=== PATIENT | female | born 1995 | race Caucasian/White ===

== ENCOUNTER 2018-04-24 08:30 | Outpatient (RCR) | payer MEDICAID, SELFPAY ==
--- NOTE | 2018-04-24 09:05 | BH.SGPN.GN ---
Behaviors/Verbalizations/Mental Status: []Client alert and oriented, casual dress. Eye contact good. Motor activity appropriate. Speech rambling at times. Affect congruent to mood, mood euthymic, anxious. Thoughts linear, logical, no signs of hallucinations or delusions. Reviewed client did not complete symptom tracker during group, but she is scheduled to meet with PHP therapist today. Client's individual therapist will review suicidal ideation. Client Response/Progress/Benefit: []client responded well to session, first day in PHP, receptive to positive support from peers. Client reports feeling ?a little guilty? as she explained taking a break from college classes to complete the PHP program. Client received supportive statements from peers who helped client reframe her guilt. Client stated she came to PHP due to worsening depression and anxiety. Client identified her positives as having positive supports and making the choice to attend PHP. Client appeared to benefit from connecting with peers and gaining support. No progress noted, client?s first day. Client to continue PHP to prevent decompensation and increase mood stability.
--- NOTE | 2018-04-24 10:17 | BH.SGPN.GN ---
Behaviors/Verbalizations/Mental Status: Client maintained good eye contact, casually dressed wearing winter cap, motor activity appropriate - some fidgeting in seat and with objects at table, speech normal rate and tone - at times providing off topic comments, mood euthymic, anxious, congruent affect, thoughts linear and logical, no evidence of delusions or hallucinations reported or observed. Client Response/Progress/Benefit: [Client receptive of session, did well to actively participate despite first day in IOP program. Client made connections to the input from fellow participants on factors impacting stress management and expressed that some stress is normal and important as otherwise ?we are left with nothing?. Client shared often struggling to manage her own stressors and takes on other people?s problems which further restricts ability to tolerate stress. Benefit from increasing awareness of impact stressors have on mental health and ability to function. Client expressed current stressors to include: her mental health, school, finances, guilt, relationships with others, and her future. Client progress noted in ability to identify that some of her stressors are in her control and gaining insights in her ability to set boundaries with herself to decrease stressors. Continued IOP to increase mental health insight, improve use of thought challenging, and increase stress management skills.] Narrative Note: []
--- NOTE | 2018-04-24 14:37 | BH.NA_ITS ---
Physical Data - Vital Signs Pulse Rate: 66 Respiratory Rate: 14 Blood Pressure: 98/50 - Height/Weight Height: 1.55 m Weight:: 53.524 kg Weight in Pounds: 118.0 lbs Current Medication Compliance - Medication Compliance Do you take your medication as prescribed?: Yes Do you need assistance with taking medication?: No Have you had side effects from medication?: No Nutritional History - Appetite Nutritional Instructions:: If client shows signs of a swallowing problem, weight change of 10 pounds or more in the last month, or is on a diabetic diet, the physician will review and request a dietitian consult, as appropriate. All unintentional weight loss will be referred to the physician for decision on need for dietitian consult. Describe your appetite:: Fair Have you noticed a change in your eating habits lately?: Yes - overall decreased appetite w/o significant weight change Functional Assessment - Sleep Pattern Describe any problems with sleeping: Client reports frequent difficulty falling asleep recently. 7-10 hours nightly. - Activities Motor Activity:: Functional Sensory/Communication Assess - Dental Problems Do you have any dental problems?: None - Vision Problems Do you have any vision problems?: Glasses - Hearing Problems Do you have any hearing problems?: Adequate - Communication Problems Do you have difficulty understanding what people are saying?: No Do you have trouble putting your thoughts into words or expressing what you want to say?: No Do people ever have trouble understanding what you say?: No What is your primary language?: [place] Learning Assessment - Education What is your level of education?: Some College - Learning Barriers Learning Barriers:: Ready to learn Medical Problems/History - Pain Assessment Do you have acute or chronic pain?: No - Sexual History Are you sexually active? If so, what type of protection do you use?: Yes - Female Reproductive Do you think you may be ?: No Number of pregnancies:: 0 Number of children:: 0 Have you reached menopause?: No Do you have any history of breast disease?: No - Family History Family History: Family History (Last Updated 04/24/18 @ 14:33 by CHARITO Sarabia RN) Mother CAD (coronary artery disease) Asthma Surgical History - Surgical History Have you had any surgeries? If so, list type and date:: Yes Substance Abuse - Substance Abuse Please describe substance abuse in the last 30 days:: Drinks 1-2 alcoholic jacoby erages weekly. Never a tobacco user. Denies illicit substance use. Reports minimal caffeine intake. Mental Status Summary - Mental Status Significant Findings/Observations on Appearance and Mood:: Client is A&Ox4, cooperative with interview, and makes good eye contact. She engages easily in conversation. She has appropriate grooming and hygiene with casual dress. Normal activity. Steady gait. Speech is clear and of normal rate and volume. Mild anxiety and moderate anhedonia. Client uses sarcasm and laughs at her mental health and past traumas, inappropriate affect. No symptoms of delusions. Denies HI or hallucinations. Denies any current or recent SI. Suicide Assessment - Suicidal Ideation Are you currently or have you been suicidal in the past?: No Suicidal Intentional Rating Scale (SIRS): No suicidal thoughts (past or present) Physician Notification: If Active suicidal thoughts/Will not contract for safety is checked, contact physician and document in the Physician Notification section below. Assault History/Potential - History of Assault Do you have a history of assaulting someone?: No Physician Notification: If yes, notify physician and document notification date and time below. Past Psychiatric History - MH Treatment Hx Age of first mental health symptoms: 10-11 Describe (age, circumstance, etc) any past hospitalizations: N/A Fall Risk Assessment - Age Age: Less than 60 - Mental Status Mental Status: Willing & able to ask for assistance when needed - Physical Status Physical Status: No problems - Impairments Impairments: None - Elimination Elimination: Continent AND independent - Gait or Balance Gait or Balance: Walks independently - Hx of Falls History of falls in the past 6 months: No known history - Medications/Substances Psychotropics:: Antidepressants Medications/substances used within the past 24 hours or ordered to administer: 1-2 of the medications/substances listed above - Total Score Total Points:: 1 RN Summary of Impressions - Impressions Recommendations: Include psychiatric and medical issues, treatment planning recommendations, and discharge planning needs. Impressions: Psychiatric Issues: MDD, anxiety, PTSD Impression: Medical Issues: N/A Impression: General Medical Conditions: N/A - Level of Care How do the client's current symptoms and functional deficits support need for this level of care?: Client endorses decompensated mental health for the past 4 weeks, triggered by a recent breakup. She describes poor motivation, low energy, and isolation. She is not finding enjoyment in activities, like reading and gardening, as she has before. Alvina describes feelings of restlessness and overwhelming rumination, noting that she gets in her head and can't get out. Her symptoms have become severe enough that she has been unable to complete work and school assignments. She has also begun skin picking, a new habit. She is a college student at [employer] majoring in [employer]. She has a significant trauma history, including the murder/suicide of her parents at age 14. Despite recent increase in antidepressant and outpatient counseling, she has continued to decompensate. IOP will promote gains, provide socialization, and prevent further decompensation.
--- NOTE | 2018-04-24 16:08 | BH.MDN_ITS ---
Multi-Disciplinary Note - Note 45-min Individual Time Started:: 12:25 Date: 04/24/18 Purpose of session/treatment goals addressed:: Purpose of session was to assess pt's current symptoms and stressors. Other topics: psychoeducation about cognitive triangle and started discussion about treatment goals. Eye Contact:: Good Motor Activity:: Appropriate Appearance:: Casual Speech:: Appropriate Mood:: Anxious, Other - tearful at times Affect:: Congruent Thoughts:: Linear, Logical, No evidence of hallucinations/delusions noted Staff Interventions:: Therapist used open ended questions to elicit pt's current symptoms and stressors. Processed what led pt to seek out help. Provided psychoeducation about connection between thoughts, emotions, and behavior. Elicited pt's thoughts about what goals she'd like to focus on while in PHP. Provided pt with homework to complete simple thought record. Client Response:: Pt reported she enjoyed group sessions today because it was helpful to hear other people's perspectives and insights. Pt shared she sought out treatment because she noticed she was starting to decompensate in functioning and wanted to be proactive by getting help before she was in a severe depressed state. Pt reported she's experience many stressors with discord with her foster dad, moving out from her foster parents home, having roommate troubles, relationship issues and struggling to complete her college school work. Pt shared she was able to get an incomplete on her courses so she has additional time to complete the missing work so she doesn't have to dropout two weeks before semester ends. Pt reported her parents in 2009 and her 5 siblings and self went to her current foster parents. Pt shared she feels like she has had to be the senior radiation protection technician of her younger siblings since she is the oldest. Pt reported she recognizes she takes care of others as a way to avoid or distract herself from focusing on what she needs. Pt stated she tends to jump into relationships after a breakup, but reported this time she is going to try and stay single so she can focus on what she needs to get better. Pt could connect with the cognitive triangle, but did verbalize apprehension on whether it would work for her. Pt verbalized she is willing to complete the thought record for homework. Pt reported as for goals she'd like to focus on self-care, how to deal with racing thoughts, and learning coping skills. Risks/Concerns:: Pt denies suicidal ideation, plan or intention to date. Pt reported she does pick at her face and peel her nails, but reports she is is not engaging in those behaviors as a form of self-harm. Progress Toward Goals/Plan:: Pt's first day in PHP, no progress observed. Session focused on gathering background information, psychoeducation, and goal setting. Pt to continue PHP level of care to stabilize moods, improve use of healthy coping, and prevent decompensation. Time Stopped:: 13:12
--- NOTE | 2018-04-25 09:10 | BH.SGPN.GN ---
Behaviors/Verbalizations/Mental Status: [] Eye contact is good. Motor activity is appropriate. Appearance is casual. Speech is Appropriate. Mood is depressed. Affect is flat. Thoughts are linear and logical. No evidence of psychosis. Reviewed daily check in sheet and no reports of suicidal ideations or intent. Client Response/Progress/Benefit: [] Active participant in group discussion. Tearful during check-in. Shared with the group grief reactions and struggles adjusting to recent break-up. Continues to ruminate on the relationship and negative conversations with her ex. Has external coping skills, distractions, and support which she is relying on however reports being alone with her thoughts is most distressful. Group provided feedback on developing internal coping skills. Limited progress noted. Continues to report significant depression, ruminations, and difficulty functioning on daily basis. Limited coping strategies. Will continue in IOP to maintain safety, improve daily functioning, and prevent further decompensation. Benefited from group support, feedback, and encouragement. Narrative Note: []
--- NOTE | 2018-04-25 10:20 | BH.SGPN.GN ---
Behaviors/Verbalizations/Mental Status: []Pt eye contact good, casually dressed, motor activity appropriate, speech normal rate and tone, mood euthymic, congruent affect, thoughts linear and intact, no evidence of delusions or hallucinations. Client Response/Progress/Benefit: []Pt listened attentively to peers and contributed to discussion at times. Pt connected with that quote that communication can be an illusion because if use behavior to communicate versus directly communicating it can lead to needs not being met. Pt related to others that assumptions will often lead to misinterpretations and often increased problems. Pt added her thoughts to discussion about the four different types of communication (passive, passive-aggressive, aggressive, and assertive). Pt reported it seems passive communication style results in putting others' needs before your own, which pt could recognize could lead to decreased self-esteem. Pt noted importance of not using texting when trying to have serious conversation because nonverbal communication cannot be seen through text. Pt seemed to benefit from increased awareness of the different types of communication as well as learning about benefits and costs of each style. Narrative Note: []
--- NOTE | 2018-04-25 11:25 | BH.SGPN.GN ---
Behaviors/Verbalizations/Mental Status: []Eye contact is good. Motor activity is appropriate. Appearance is casual. Speech is Appropriate. Mood is anxious. Affect is congruent. Thoughts are linear and logical. No evidence of psychosis. Client Response/Progress/Benefit: []Pt listened attentively to peers and shared thoughts and ideas during discussion. Pt reported she tends to be assertive-passive which pt explained as she will start off being assertive with someone, but then becomes passive and often will give in to the other person. Pt recognizes she experiences more of the costs/benefits of a passive communicator, due to often backing down from being assertive. Pt connected with importance of being specific and clear when communicating. Pt seemed to benefit from group brainstorm of various strategies that can improve communication effectiveness. Pt to continue PHP level of care to maintain gains and prevent decompesnation. Narrative Note: []
--- NOTE | 2018-04-25 15:32 | BH.MTP ---
Master Treatment Plan - Patient Information Program Physician:: Dr. Romero Primary Therapist:: Christine Orona, [facility] - Psychiatric Diagnoses Psychiatric Diagnoses:: Major Depressive Disorder, Recurrent moderate Diagnosis Code(s):: F33.1 - Estimated LOS Estimated LOS (in weeks):: 4 Problem/Goal #1 - Problem/Goal #1 Stated Goal:: Client will reduce depression, feelings of hopelessness, and suicidal ideation due to Major Depressive Disorder through the Intensive Outpatient Program. Description of Barriers: Pt's cognitive distortions, external locus of control, low motivation, and relationship conflicts could all be potential barriers to treatment. Functional Impact: Pt having trouble keeping up with her school work and having increased anxiety about her future. Pt reports decreased energy, decreased motivation, anhedonia, and isolated. Pt having passive thoughts of and is pessimistic about her future. Goal Relevant Strengths/Supports: Pt is intelligent, resilient, and has several positive supports in her life that are encouraging and serve as protective factors. - Objectives Objective #1 Stated Objective: Client will identify and replace 2-3 negative thinking patterns that reinforce depressive symptoms. Interventions: Assist the client in identifying, challenging, and replacing dysfunctional thoughts with positive self-enhancing thoughts. Discharge Criteria: Client will have achieved this goal when can identify at least 2 negative thinking patterns, replace thoughts with rational thoughts, and combat suicidal ideation. Target Date: 05/23/18 Objective #2 Stated Objective: Pt will decrease depressive symptoms AEB pt?s score on the DSM 5 cross-cutting measure and improve pt?s daily functioning. Interventions: Through groups and individual therapy, pt will be provided with education on cognitive distortions, mistaken beliefs, and identifying and combating negative self-talk. Therapist will assist pt with getting back into the activities she once enjoyed as well as increasing healthy coping strategies. Discharge Criteria: Pt will have met this goal when pt?s score on the DSM 5 cross cutting measure for depression has been decreased and per pt?s report daily functioning has improved. Target Date: 05/23/18 Problem/Goal #2 - Problem/Goal #2 Stated Goal:: Reduce overall frequency, intensity, and duration of the anxiety so that daily functioning is not impaired. Description of Barriers: Pt's cognitive distortions, external locus of control, low motivation, and relationship conflicts could all be potential barriers to treatment. Functional Impact: Pt having trouble keeping up with her school work and having increased anxiety about her future. Pt reports decreased energy, decreased motivation, anhedonia, and isolated. Pt having passive thoughts of and is pessimistic about her future. Goal Relevant Strengths/Supports: Pt is intelligent, resilient, and has several positive supports in her life that are encouraging and serve as protective factors. - Objectives Objective #1 Stated Objective: Client will learn and utilize 2-3 healthy coping strategies to manage anxious symptoms. Interventions: Therapist will assist client in learning internal coping strategies to manage anxious symptoms, along with helping client identify triggers. Discharge Criteria: Client will have achieved this goal when can verbalize and has practiced at least 2 healthy coping strategies. Target Date: 05/23/18 Objective #2 Stated Objective: Pt will decrease anxious symptoms AEB pt?s score on the DSM 5 cross-cutting measure improve pt?s daily functioning. Interventions: Through groups and individual therapy, pt will be provided education about anxiety?s impact on body and common physiological reaction to anxiety. Therapist will teach pt appropriate breathing techniques and build healthy coping skills to manage daily anxieties. Discharge Criteria: Pt will have met this goal when pt?s score on the DSM 5 cross cutting measure for anxiety has been decreased and per pt?s report daily functioning has improved. Target Date: 05/23/18
--- NOTE | 2018-04-25 16:14 | BH.COMM ---
Communication Note - Communication with Client Communication Note: due to unforseen circumstances psychiatrist was unable to make it into program to complete evaluation today.
--- NOTE | 2018-04-25 16:31 | BH.MDN ---
Multi-Disciplinary Note - Note 45-min Individual Time Started:: 12:21 Date: 04/25/18 Purpose of session/treatment goals addressed:: Purpose of session was to assess current symptoms and stressors. Other topics: processing conflict situation, conflict resolution strategies and cognitive distortions. Eye Contact:: Good Motor Activity:: Restless Appearance:: Casual Speech:: Appropriate Mood:: Anxious Affect:: Congruent Thoughts:: Circular, No evidence of hallucinations/delusions noted Staff Interventions:: Therapist used open ended questions to elicit pt's current symptoms and stressors. Therapist inquired about pt's homework from last session. Therapist assisted pt with processing current conflict situation. Educated pt about various conflict resolution strategies. Therapist provided pt with handout about cognitive distortions, asked pt to review distortions and identify which distortions she relates to the most for homework. Client Response:: Pt reported she did not completed the homework from last session because she forgot. Pt shared she spent last night ruminating about her ex-girlfriend. Pt had many negative thoughts towards the relationship, at times repeating the same situation about her ex. Pt reported her other stressor to be her roommates. Pt shared she has been having difficulty with her roommates since February with one roommate not paying the electric bill on time. Pt stated she is frustrated becasue due to her roommate not payin on time the late fees keep accruing. Pt shared she has attempted to communicate her concerns to her roommate, but her roommate refuses to speak with pt. Pt shared with therapist a note pt had left for her roommate. With assistance pt could identify passive aggressive statemens pt had made that didn't help the situation. Connected with some of the conflict resolution strategies discussed. Reported anxiety about confronting roommate because roommate has history of threatening to kill herself when confronted. Pt reported over weekend plans to spend time with one of her friends to stay busy and have support. Agreeable to look over cognitive distortions and identify which distortions she relates to most. Risks/Concerns:: Pt denies suicidal ideation, plan or intention to date. Progress Toward Goals/Plan:: Pt progress limited. Pt spent time venting during individual session, did not complete homework. Pt continuing to have many ruminations about her ex-girlfriend, which pt has difficult time bringing herself back to the moment. Pt anxiety seems to be exasperated by conflicts within her interpersonal relationships. Pt to continue PHP level of care to decrease anxiety, improve daily functioning, and prevent decompesnation. Time Stopped:: 13:04
[2018-05-23 14:23] VITALS: BP 98/50; PULSE 66; RESP 14
--- OUTSIDE RECORDS SUMMARY | 2018-06-19 08:51 | XMS RPT_ITS ---
:1995 Author Organization OHIP Care Team Providers Name Role Phone HALEY LINK Attending Unavailable HALEY LINK Attending Unavailable HALEY LINK Referring Unavailable ALEXA MOCK (CNM) Attending Unavailable CAROLYN LANDRUM (LINING INSERTER) Attending Unavailable SUNIL YANEZ Attending Unavailable Haley Link Primary Care Unavailable SUNIL YANEZ Attending Unavailable Haley Link Primary Care Unavailable PROBLEMS PROBLEMS DATE TYPE CONDITION / CODE ATTENDING STATUS SOURCE 12/20/2017 Active Vitamin D NA Active [facility] deficiency, Main [place] unspecified / Repository E55.9(ICD-10) 08/01/2017 Active Unknown / CAROLYN LANDRUM Active [facility] UNK(Unknown) (LINING INSERTER) Main [place] Repository PROCEDURES PROCEDURES No Procedure Records FoundRESULTS RESULTS PROGRESS Observed: 03/14/2018 Status: COMPLETED Source: [place] 10:56 AM [facility] REPOSITORY HNO ID: [id number] Author: Logan Hand LPN Service: (none) Author Type: (none) Type: Progress Notes Filed: 03/14/2018 10:57 AM Note Text: 22 year old female here for INACTIVATED INFLUENZA VACCINE. 5406-1227 Season Patient is identified by name and date of : Yes [] CONTRAINDICATIONS color enhanced section Age less than 6 months? No Allergy to eggs, chicken, chicken feathers, or chicken dander? No Allergy to thimerosal (a preservative) or formaldehyde, gelatin? No History of severe reaction to any vaccine component or a previous dose of influenza vaccination? No History of Guillain-[place]gle[place] Syndrome within 6 weeks after a previous influenza vaccine? No Patient is not moderately or severely ill? No Current temperature greater or equal to 100.4F? No History of Bone Marrow Transplant prior 6 months or solid organ transplant in the past 3 months ? No History of fainting after a prior injection or medical procedure? No- ? If patient has fainted in the past, the CDC recommends sitting or lying down for 15 minutes after the vaccination. [] VERIFICATION color enhanced section Was the answer Yes for any of the above contraindications? No contraindications present. Acceptable to proceed with vaccine. Patient/guardian agrees the above answers are true to the best of their knowledge? Yes Flu vaccine information sheet given? Yes See immunization activity in [facility] for details of immunizations adminstered today. Patient age: [age] year old For The 4323-3119 Flu Season 6-35 months old: Fluzone 0.25 ml - IM (Preservative Free) 3 years of age: Fluzone 0.5 ml - IM (Preservative Free) 3 years and older: Fluzone 0.5 ml- IM-(with Preservatives) 65+ years old: 2-49 years old Fluzone High-Dose 0.5 ml - IM (Preservative Free) FLUMIST- intranasal REMEMBER: If patient is less than 9 years of age and this is the first vaccine of Influenza to be received in any flu season, they should receive a second dose in one months time. CNNURSE Observed: 03/14/2018 Status: COMPLETED Source: [place] 10:[address] [facility] [place] REPOSITORY Nurse Visit (FAMPWS) GARRETT KAYITTIM Diaz ([id number]) 1995 F Date Time Provider Department 03/14/18 10:40 AM IN NURSE MONAL[place] During your visit today, we recorded the following information about you: Temperature 97.6 degrees Logan Hand CARLOS 03/14/2018 10:57 AM Signed 22 year old female here for INACTIVATED INFLUENZA VACCINE. [id number] Season Patient is identified by name and date of : Yes [] CONTRAINDICATIONS color enhanced section Age less than 6 months? No Allergy to eggs, chicken, chicken feathers, or chicken dander? No Allergy to thimerosal (a preservative) or formaldehyde, gelatin? No History of severe reaction to any vaccine component or a previous dose of influenza vaccination? No History of Guillain-In[place]wood Syndrome within 6 weeks after a previous influenza vaccine? No Patient is not moderately or severely ill? No Current temperature greater or equal to 100.4F? No History of Bone Marrow Transplant prior 6 months or solid organ transplant in the past 3 months ? No History of fainting after a prior injection or medical procedure? No- ? If patient has fainted in the past, the CDC recommends sitting or lying down for 15 minutes after the vaccination. [] VERIFICATION color enhanced section Was the answer Yes for any of the above contraindications? No contraindications present. Acceptable to proceed with vaccine. Patient/guardian agrees the above answers are true to the best of their knowledge? Yes Flu vaccine information sheet given? Yes See immunization activity in [facility] for details of immunizations adminstered today. Patient age: [age] year old For The 6259-8765 Flu Season 6-35 months old: Fluzone 0.25 ml - IM (Preservative Free) 3 years of age: Fluzone 0.5 ml - IM (Preservative Free) 3 years and older: Fluzone 0.5 ml- IM-(with Preservatives) 65+ years old: 2-49 years old Fluzone High-Dose 0.5 ml - IM (Preservative Free) FLUMIST- intranasal REMEMBER: If patient is less than 9 years of age and this is the first vaccine of Influenza to be received in any flu season, they should receive a second dose in one months time. 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] INVALID FOR* Vitamin D deficiency [E55.9] INVALID FOR* Encounter Status:Closed by LOGAN HAND LPN on 03/14/18 CBC AND DIFFERENTIAL Collected: 12/20/2017 Status: F Source: [place] 10:47 AM [facility] REPOSITORY TYPE CODE TESTS RESULT OUT OF REFERENCE UNITS RANGE LAB WBC 3.70-11.00 k/uL WBC 6.02 LAB RBC 3.90-5.20 m/uL RBC 4.91 LAB HGB 11.5-15.5 g/dL Hemoglobin 14.4 LAB HCT 36.0-46.0 % Hematocrit 45.8 LAB MCV 80.0-100.0 fL MCV 93.3 LAB MCH 26.0-34.0 pG MCH 29.3 LAB MCHC 30.5-36.0 g/dL MCHC 31.4 LAB RDWCV 11.5-15.0 % RDW-CV 13.0 LAB PLTCT 150-400 k/uL Platelet Count 187 LAB MPV 9.0-12.7 fL MPV 11.7 LAB ANEUT % Neut% 47.6 LAB AANEUT 1.45-7.50 k/uL Abs Neut 2.85 LAB ALYMP % Lymph% 41.0 LAB AALYMP 1.00-4.00 k/uL Abs Lymph 2.47 LAB AMONO % Harrison% 11.1 LAB AAMONO <0.87 k/uL Abs Harrison 0.67 LAB AEOS % Eosin% 0.0 LAB AAEOS <0.46 k/uL Abs Eosin <0.03 LAB ABASO % Baso% 0.3 LAB AABASO <0.11 k/uL Abs Baso <0.03 LAB AUNRBC 0 /100 WBC NRBCs 0.0 LAB ABNRBC <0.01 k/uL Absolute nRBC <0.01 LAB DTYP DTYPE Auto Diff Performed By: #### CBCDIF, VITD #### [facility] [email or web address] [address] [place] [address] VITAMIN D 25 HYDROXY Collected: 12/20/2017 Status: F Source: [place] 10:47 AM [facility] REPOSITORY TYPE CODE TESTS RESULT OUT OF REFERENCE UNITS RANGE LAB VITD 31.0-80.0 ng/mL Vitamin D 25 36.3 Hydroxy Result Comment: Classification of 25 OH Vitamin D status: Insufficiency/Moderate Deficiency: < or = 30 ng/mL Sufficiency/Optimal Levels: 31 to 80 ng/mL Toxicity: > 100 ng/mL Test performed by chemiluminescent immunoassay. Performed By: #### CBCDIF, VITD #### [facility] [email or web address] [address] [place] [address] PROGRESS Observed: 12/20/2017 Status: COMPLETED Source: [place] 10:01 AM [facility] REPOSITORY HNO ID: [id number] Author: Haley Link Service: (none) Author Type: Physician Type: Progress Notes Filed: 12/20/2017 10:41 AM Note Text: 22 year old female presents for a routine 12+ year check-up. [] GENERAL QUESTIONS color enhanced section Patient concerns: NONE Parental concerns: N/A Diet: milk: whole ; balanced diet; specific issues: NONE Stools: NORMAL (soft and appropriately sized) Urine: NO PROBLEMS Fluoride Water: uses significant amount of [employer] water from: [place] - optimum level (use recommendations for levels of >0.6 ppm), adjusted/purchase (2011 testing) Prescription: age 17+ years - no fluoride supplement indicated Ongoing subspecialty care: Ongoing care: ophthalmology Ongoing ancillary care: NONE School/etc: going into college senior, doing well, grades A. will be doing a [employer] project this year, major [employer] Interests AND Activities: music Significant stresses: Yes, details: UNSPECIFIED [] SPORTS QUESTIONS color enhanced section History of seizures: No History of concussion: Yes History of syncope: No History of heart problems: No History of hypertension: No History of asthma: No History of single kidney: No History of skeletal problems: No History of any significant injury: No Family history of either heart problems or sudden <age 40 years: No MEDICAL HISTORY Past medical history: IMPORTED PAST MEDICAL HISTORY Diagnosis Date - Concussion - PMH - PAST MEDICAL HISTORY OF 01/02 normal color vision IMPORTED PAST SURGICAL HISTORY Procedure Laterality Date - NONE Family history: IMPORTED FAMILY HISTORY Problem Relation Age of Onset - Allergies Mother - Asthma Mother - [OTHER] Mother 12/23/09 - Hypertension Father maternal side - Diabetes Father maternal side - [OTHER] Father 12/23/09 GYNECOLOGICAL HISTORY Menarche: 13 Periods are: regular q 28-30 days [] SOCIAL HISTORY color enhanced section Sexual activity: Yes, details: single female partner; contraception: NONE Substance abuse and smoking: Yes, details: alcohol-1-3 glasses of wine per month High risk behaviors: NONE Mental health: POSITIVE OUTLOOK Social history obtained when patient was alone [] MISCELLANEOUS color enhanced section Difficulties with learning for caregiver: No VISION AND HEARING ASSESSMENT Eye doctor visit within the past year: Yes Hearing concerns: No [] ADDITIONAL NURSING COMMENTS color enhanced section None Kalie Alcantara Ma PHYSICAL EXAM (to re-import BP% use .BPFA) BP 100/60 Pulse 68 Temp 36.6 ?C (97.9 ?F) (Temporal Artery) Resp 16 Ht 156 cm (5' 1.42) Wt 54.4 kg (120 lb) LMP 11/25/2017 BMI 22.37 kg/m? General: alert and active in no apparent distress Head: normal Eyes: conjunctivae/corneas clear. PERRL, EOM's intact. Ears: External ears normal. Canals clear. TM's normal. Nose: Nares normal. Septum midline. Mucosa normal. Oropharynx: Lips, mucosa, and tongue normal. Teeth and gums normal. Oropharynx normal. Neck: Neck supple, no adenopathy; thyroid symmetric, normal size Back: Back symmetric, no curvature. Lungs: Lungs clear to auscultation. Heart: RRR , Normal S1 and S2.,No murmurs Abdomen: Abdomen soft, non-tender. BS normal. No masses, organomegaly Extremities: Extremities normal. No deformities, edema, or skin discolora Musculoskeletal: Extremities with FROM and no problems identified. Neuro: No focal deficits or abnormal findings present Skin: No significant lesions [] ASSESSMENT color enhanced section Well patient Normal growth Issues: Vit d deficiency concerned about anemia and some bruising (one noted on exam today) PLAN Office Visit on 12/20/17 -CBC + DIFF -VITAMIN D 25 HYDROXY -FLUoxetine HCl (PROZAC) 40 mg capsule Plan per orders. Counseling: seat belts, bike AND motorcycle helmets, water safety, sunscreen power tools, firearms exercise, sports safety 2% (or less) milk, balanced diet, limit sugar and high fat foods dental care adequate sleep, limit TV / video and computer games social interactions with family and peers school issues drug, alcohol and tobacco use sexual activity and control mental health and abuse / domestic violence issues Forms filled out: NONE Follow up visit in 1 year for routine care or prn with concerns. I have reviewed the above nursing obtained HPI and I concur. Haley Link MD CNOV Observed: 12/20/2017 Status: COMPLETED Source: [place] 9:45 AM [facility] REPOSITORY Office Visit (PEDSWS) ONESIMO KAY ([id number]) 1995 F Date Time Provider Department 12/20/17 9:45 AM HALEY LINK PEDSWS During your visit today, we recorded the following information about you: Temperature Pulse Respiration Blood pressure 97.9 degrees 68/minute 16/minute 100/60 Weight Height Last Period 54.4 kg 1.56 m 11/25/17 Haley Link MD 12/20/2017 10:41 AM Signed 22 year old female presents for a routine 12+ year check-up. [] GENERAL QUESTIONS color enhanced section Patient concerns: NONE Parental concerns: N/A Diet: milk: whole ; balanced diet; specific issues: NONE Stools: NORMAL (soft and appropriately sized) Urine: NO PROBLEMS Fluoride Water: uses significant amount of city water from: [place] - optimum level (use recommendations for levels of >0.6 ppm), adjusted/purchase (2011) Prescription: age 17+ years - no fluoride supplement indicated Ongoing subspecialty care: Ongoing care: ophthalmology Ongoing ancillary care: NONE School/etc: going into college senior, doing well, grades A. will be doing a [employer] project this year, major [employer] Interests AND Activities: music Significant stresses: Yes, details: UNSPECIFIED [] SPORTS QUESTIONS color enhanced section History of seizures: No History of concussion: Yes History of syncope: No History of heart problems: No History of hypertension: No History of asthma: No History of single kidney: No History of skeletal problems: No History of any significant injury: No Family history of either heart problems or sudden <age 40 years: No MEDICAL HISTORY Past medical history: IMPORTED PAST MEDICAL HISTORY Diagnosis Date - Concussion - PMH - PAST MEDICAL HISTORY OF 01/02 normal color vision IMPORTED PAST SURGICAL HISTORY Procedure Laterality Date - NONE Family history: IMPORTED FAMILY HISTORY Problem Relation Age of Onset - Allergies Mother - Asthma Mother - [OTHER] Mother 12/23/09 - Hypertension Father maternal side - Diabetes Father maternal side - [OTHER] Father 12/23/09 GYNECOLOGICAL HISTORY Menarche: 13 Periods are: regular q 28-30 days [] SOCIAL HISTORY color enhanced section Sexual activity: Yes, details: single female partner; contraception: NONE Substance abuse and smoking: Yes, details: alcohol-1-3 glasses of wine per month High risk behaviors: NONE Mental health: POSITIVE OUTLOOK Social history obtained when patient was alone [] MISCELLANEOUS color enhanced section Difficulties with learning for caregiver: No VISION AND HEARING ASSESSMENT Eye doctor visit within the past year: Yes Hearing concerns: No [] ADDITIONAL NURSING COMMENTS color enhanced section None Kalie Alcantara Dc PHYSICAL EXAM (to re-import BP% use .BPFA) BP 100/60 Pulse 68 Temp 36.6 ?C (97.9 ?F) (Temporal Artery) Resp 16 Ht 156 cm (5' 1.42) Wt 54.4 kg (120 lb) LMP 11/25/2017 BMI 22.37 kg/m? General: alert and active in no apparent distress Head: normal Eyes: conjunctivae/corneas clear. PERRL, EOM's intact. Ears: External ears normal. Canals clear. TM's normal. Nose: Nares normal. Septum midline. Mucosa normal. Oropharynx: Lips, mucosa, and tongue normal. Teeth and gums normal. Oropharynx normal. Neck: Neck supple, no adenopathy; thyroid symmetric, normal size Back: Back symmetric, no curvature. Lungs: Lungs clear to auscultation. Heart: RRR , Normal S1 and S2.,No murmurs Abdomen: Abdomen soft, non-tender. BS normal. No masses, organomegaly Extremities: Extremities normal. No deformities, edema, or skin discolora Musculoskeletal: Extremities with FROM and no problems identified. Neuro: No focal deficits or abnormal findings present Skin: No significant lesions [] ASSESSMENT color enhanced section Well patient Normal growth Issues: Vit d deficiency concerned about anemia and some bruising (one noted on exam today) PLAN Office Visit on 12/20/17 -CBC + DIFF -VITAMIN D 25 HYDROXY -FLUoxetine HCl (PROZAC) 40 mg capsule Plan per orders. Counseling: seat belts, bike AND motorcycle helmets, water safety, sunscreen power tools, firearms exercise, sports safety 2% (or less) milk, balanced diet, limit sugar and high fat foods dental care adequate sleep, limit TV / video and computer games social interactions with family and peers school issues drug, alcohol and tobacco use sexual activity and control mental health and abuse / domestic violence issues Forms filled out: NONE Follow up visit in 1 year for routine care or prn with concerns. I have reviewed the above nursing obtained HPI and I concur. MD Haley Madrigal MD 12/20/2017 10:02 AM Signed 14-18 years Fueling Your Thoughts ? Are you concerned with your child's eating habits or level of activity? ? Do you and your child eat vegetables every day? ? How many meals do you eat as a family each week? How many are from fast food, take out, etc? ? What beverages do you buy? ? How much time does your child watch TV, play on the computer, play video games, or text daily? ? What do you and your child do to stay active? Nutrition Tips By providing nutritious foods to your child, you help him or her improve strength, energy, attention span and the ability to keep up with friends. ? Breakfast - Eating a healthy breakfast every day is recommended. ? Lunch - Review school menus with your child and plan ahead; or pack a lunch with at least 4 out of the 5 food groups (calcium foods, fruits, vegetables, whole grains and lean protein). ? Snacks - Eat only when hungry. Stock up on [id number]-[id number] vegetables, fruit, cheese, yogurt, milk, lean meats, whole grains, low sugar cereal or nuts. ? Dinner - Eat as many meals as possible as a family at the dinner table. Be sure to slow down, enjoy, and turn off screens. ? Eating Out - Keep portion sizes small or share meals (don't super size). Choose fruit or salad instead of fries, milk instead of soft drinks, baked or broiled instead of fried. ? Beverages - Think Your Drink! ? The best choices are water or milk. ? Limit sweetened beverages such as soft drinks, iced teas, energy drinks and caffeine-containing beverages. ? Regular intake of too much caffeine can lead to trouble sleeping, rapid heart rate, anxiety, poor attention span, headaches or shakiness. Your main job is to offer a variety of healthy foods (fruits, vegetables, milk, yogurt, cheese, whole grains, mere, poultry, fish and eggs). Parents ? Make sure you and your kids are active 60 minutes every day. Focus on FUN, including both organized and free play. ? Count time spent doing chores: car washing, walking the dog, dusting, sweeping, pulling weeds, raking leaves or shoveling snow. ? Involve the whole family in physical activity because you are role models! ? Be a good role model for your kids - be active and eat healthy foods. ? Screen time (computers, TV, phones, rubens systems, texting, etc.) should be limited to 2 hours or less daily (pre-plan how screen time will be used). ? Screens may be monitored easily if moved to a common area; keep them out of child's bedroom. ? Make sure your child is sleeping at least 10-11 hours per night. Keeping regular bed time is critical to good health and weight management. ? Caffeine can interfere with a healthy sleep routine. ? If you have concerns about your child's weight, physical activity or eating behaviors, ask your healthcare provider. Tips Regarding Teens ? Do not criticize your teenager about their size and shape. Focus on strengths rather than appearance. ? Remember that parents can still influence choices...as a parent you are still the role model! 5 to Go!TM Healthy Kids Inside AND Out 5 Eat FIVE fruits and veggies a day 4 Give and get FOUR compliments a day 3 Consume THREE calcium products a day 2 Limit media time to TWO hours a day 1 Get at least ONE hour of exercise a day 0 Consume ZERO sugar-sweetened drinks Go! Be healthy, inside and out! [email or web address] Referring Provider: SELF [200] Allergies As of Date: 12/20/2017 (No Known Allergies) Date Reviewed: 12/20/2017 Reviewed by: Haley Link - Fully Assessed Reason for Visit: Physical [83] Primary Visit Diagnosis:Encounter for general adult medical examination without abnormal findings [Z00.00] Other Visit Diagnosis:Vitamin D deficiency [E55.9] Order(s):CBC + DIFF [SQCBCDIF] Order #: [id number] FUTURE VITAMIN D 25 HYDROXY [SQVITD] Order #: [id number] FUTURE FLUoxetine HCl (PROZAC) 40 mg capsuleTake 1 capsule by mouth once daily.Disp: 30 capsuleRfl: 6 Prescriptions as of 12/20/2017 Sig: FLUOXETINE 40 MG CAPSULE Take 1 capsule by mouth once * CHOLECALCIFEROL (VITAMIN D3) * Take 1 capsule by mouth twice* Problem List As Of Date 12/20/2017 Noted Resolved 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 Are you concerned with your child's eating habits or level of activity? ? Do you and your child eat vegetables every day? ? How many meals do you eat as a family each week? How many are from fast food, take out, etc? ? What beverages do you buy? ? How much time does your child watch TV, play on the computer, play video games, or text daily? ? What do you and your child do to stay active? Nutrition Tips By providing nutritious foods to your child, you help him or her improve strength, energy, attention span and the ability to keep up with friends. ? Breakfast - Eating a healthy breakfast every day is recommended. ? Lunch - Review school menus with your child and plan ahead; or pack a lunch with at least 4 out of the 5 food groups (calcium foods, fruits, vegetables, whole grains and lean protein). ? Snacks - Eat only when hungry. Stock up on krrmm-sd-its vegetables, fruit, cheese, yogurt, milk, lean meats, whole grains, low sugar cereal or nuts. ? Dinner - Eat as many meals as possible as a family at the dinner table. Be sure to slow down, enjoy, and turn off screens. ? Eating Out - Keep portion sizes small or share meals (don't super size). Choose fruit or salad instead of fries, milk instead of soft drinks, baked or broiled instead of fried. ? Beverages - Think Your Drink! ? The best choices are water or milk. ? Limit sweetened beverages such as soft drinks, iced teas, energy drinks and caffeine-containing beverages. ? Regular intake of too much caffeine can lead to trouble sleeping, rapid heart rate, anxiety, poor attention span, headaches or shakiness. Your main job is to offer a variety of healthy foods (fruits, vegetables, milk, yogurt, cheese, whole grains, mere, poultry, fish and eggs). Parents ? Make sure you and your kids are active 60 minutes every day. Focus on FUN, including both organized and free play. ? Count time spent doing chores: car washing, walking the dog, dusting, sweeping, pulling weeds, raking leaves or shoveling snow. ? Involve the whole family in physical activity because you are role models! ? Be a good role model for your kids - be active and eat healthy foods. ? Screen time (computers, TV, phones, rubens systems, texting, etc.) should be limited to 2 hours or less daily (pre-plan how screen time will be used). ? Screens may be monitored easily if moved to a common area; keep them out of child's bedroom. ? Make sure your child is sleeping at least 10-11 hours per night. Keeping regular bed time is critical to good health and weight management. ? Caffeine can interfere with a healthy sleep routine. ? If you have concerns about your child's weight, physical activity or eating behaviors, ask your healthcare provider. Tips Regarding Teens ? Do not criticize your teenager about their size and shape. Focus on strengths rather than appearance. ? Remember that parents can still influence choices...as a parent you are still the role model! 5 to Go!TM Healthy Kids Inside AND Out 5 Eat FIVE fruits and veggies a day 4 Give and get FOUR compliments a day 3 Consume THREE calcium products a day 2 Limit media time to TWO hours a day 1 Get at least ONE hour of exercise a day 0 Consume ZERO sugar-sweetened drinks Go! Be healthy, inside and out! [email or web address] Prescriptions ordered this encounter Disp Refills Start End FLUOXETINE 40 MG CAPSULE 30 c* 6 12/20/2017 Route: ORAL Sig: Take 1 capsule by mouth once daily. Medications Discontinued During This Encounter FLUoxetine HCl (PROZAC) 40 mg capsule 30 c* 0 11/29/2017 12/20/2017 Route: ORAL Sig: Take 1 capsule by mouth once daily. Disc: Reason for discontinue is not on file. Disposition: Return for Follow-up in one year for routine physical. Follow-up and Disposition History Recorded Questionnaire: PED SOCIAL HLTH TOOL In the last 3 months, were you ever worried your food would run out before you could buy more? -> No In the last 12 months, has it been hard for you to pay any of these bills: Utility, Housing, Car, and Medical? -> No Are you worried that in the next 2 months, you may not have stable housing? -> No Do problems getting child protective services social worker make it difficult for you to work or study? (leave blank if you do not have children) -> No In the last 12 months, have you needed to see a doctor but could not because of the cost? -> No In the last 12 months, have you ever had to go without health care because you didn?t have a way to get there? -> No Do you ever need help reading hospital materials? -> No Are you afraid you might be hurt in your apartment building or house? -> No If you checked YES to any boxes above, would you like to receive assistance with any of these needs? -> No Are any of your needs urgent? (For example: I don?t have food tonight, I don?t have a place to sleep tonight) -> No Over the past 2 weeks, have you had little interest or pleasure in doing things? -> Not at all Over the past 2 weeks have you felt down, depressed or hopeless? -> Not at all Questionnaire: PED PHQ 9 1. Feeling down, depressed, irritable or hopeless? -> 1 - Several Days 2. Little interest or pleasure in doing things? -> 1 - Several Days 3. Trouble falling asleep, staying asleep, or sleeping too much? -> 1 - Several Days 4. Poor appetite, weight loss, or overeating? -> 1 - Several Days 5. Feeling tired or little energy? -> 0 - Not At All 6. Feeling bad about yourself-or feeling that you are a failure or that you have let yourself or your family down? -> 0 - Not At All 7. Trouble concentrating on things like school work, reading or watching TV? -> 0 - No- t At All 8. Moving or speaking so slowly that other people could have notices? Or the opposite-being so fidgety or restless that you were moving around a lot more than usual? -> 0 - Not At All 9. Thoughts that you would be better off or of hurting yourself in some way? -> 0 - Not At All 10. In the past year have you felt depressed or sad most days, even if you felt okay sometimes? -> No 11. If you are experiencing any of the problems listed on this questionnaire, how difficult have these problems made it for you to do your work, take care of things at home or get along with other people? -> Not at all difficult 12. Has there been a time in the past month when you have had serious thoughts about ending your life? -> No 13. Have you ever tried to kill yourself or made a suicide attempt? -> No SCORE -> 4 Total Score: Depression Severity -> 01-04=Minimal depression Encounter Status:Closed by HALEY LINK MD on 12/20/17 PROGRESS Observed: 08/16/2017 Status: COMPLETED Source: [place] 8:[address] [facility] REPOSITORY [facility] ID: [id number] Author: Alexa (Prudencio) DIRK Mock Service: (none) Author Type: Fishing Worker Type: Progress Notes Filed: 08/16/2017 10:00 AM Note Text: Onesimo Kay is a 21 year old No obstetric history on file. who presents for her annual gynecologic exam without complaints. Patient is a student at [employer]. Menses: cycles every 31-32 days and 5 days of flow. Contraception: none HPV vaccine: Yes Last pap smear: never Sexually active: Yes, partners with women History of STDS: None Patient concerns for STD exposure: No. Last sexual contact: Last week Time with current partner: 6 months Number of lifetime partners: 2 Pain with intercourse: No Postcoital bleeding: No Hot flashes: No Night sweats: No Vaginal dryness: No Mood swings: No Insomnia: No Exercise: 3-5 times a week for 30-60 minutes. Type: Walking Diet: Regular Seatbelt use: Yes @OB(<SYNTAX> error)@ PAST MEDICAL HISTORY Diagnosis Date - [facility] - PAST MEDICAL HISTORY OF 01/02 normal color vision PAST SURGICAL HISTORY Procedure Laterality Date - NONE FAMILY HISTORY Problem Relation Age of Onset - Allergies Mother - Asthma Mother - [OTHER] Mother 12/23/09 - Hypertension Father maternal side - Diabetes Father maternal side - [OTHER] Father 12/23/09 SOCIAL HISTORY Social History Substance Use Topics - Smoking status: Never Smoker - Smokeless tobacco: Never Used - Alcohol use No REVIEW OF SYSTEMS Abdomen: No bloating, early satiety, indigestion, or increased flatulence. No abdominal pain, nausea, vomiting, diarrhea, or constipation. Bladder: No dysuria, gross hematuria, urinary frequency, urinary urgency, or incontinence. Breast: No breast lumps, nipple d/c, overlying skin changes, redness or skin retraction. Allergies and current medication updated:Yes EXAM: BP 102/60 Ht 5' 1.417 (1.56m) Wt 120 lb (54.4kg) LMP 08/09/2017 BMI 22.37 kg/(m2). GENERAL: pleasant, female in no apparent distress HEENT: Normocephalic, atraumatic, mucus membranes moist and no lesions NECK: Supple, full range of motion, no adenopathy and thyroid normal DERMATOLOGY: Normal, without lesions, non-icteric and non-hirsute BREAST: soft, non-tender, symmetric, no dominant mass, normal nipple-areolar complex, no lymphadenopathy and no nipple discharge CHEST: Normal inspiratory effort ABDOMEN: soft, non-tender and no masses PELVIC: external genitalia normal, normal Bartholin's glands, urethra, Somers's glands, no vulvar lesions, no cervical lesions, good vaginal support, physiologic discharge present, normal appearing perineal body and perianal region BIMANUAL: uterus normal size, shape and consistency, no adnexal masses and non-tender NEURO: alert and oriented x3,exam grossly non-focal EXTREMITIES: normal ASSESSMENT/PLAN: 1) Health maintenance: Pap starting at the age of 21. Nutrition, exercise, and routine health maintenance exams reviewed. HPV vaccine completed series. Patient encouraged to use barrier devices with partner. 2) Contraception: none. Contraceptive options reviewed and information provided. 3) STD screening: Declined STD check. 4) Follow up one year or sooner as needed. Alexa Mock APRN.CNM CNOV Observed: 08/16/2017 Status: COMPLETED Source: [place] 8:45 AM [facility] REPOSITORY Office Visit (WOOB) ONESIMO KAY ([id number]) 1995 F Date Time Provider Department 08/16/17 8:45 AM ASSESSMENT CIRCULAR [facility] During your visit today, we recorded the following information about you: Blood pressure Weight Height Last Period 102/60 54.4 kg 1.56 m 03/16/18 Alexa Mock, AUTOMATIC DRY STARCH OPERATOR.CNM, AUTOMATIC DRY STARCH OPERATOR.CNM 08/16/2017 10:00 AM Signed Onesimo Kay is a 21 year old No obstetric history on file. who presents for her annual gynecologic exam without complaints. Patient is a student at [employer]. Menses: cycles every 31-32 days and 5 days of flow. Contraception: none HPV vaccine: Yes Last pap smear: never Sexually active: Yes, partners with women History of STDS: None Patient concerns for STD exposure: No. Last sexual contact: Last week Time with current partner: 6 months Number of lifetime partners: 2 Pain with intercourse: No Postcoital bleeding: No Hot flashes: No Night sweats: No Vaginal dryness: No Mood swings: No Insomnia: No Exercise: 3-5 times a week for 30-60 minutes. Type: Walking Diet: Regular Seatbelt use: Yes @OB(ANDlt;SYNTAXANDgt; error)@ PAST MEDICAL HISTORY Diagnosis Date - [facility] - [facility] - PAST MEDICAL HISTORY OF 01/02 normal color vision PAST SURGICAL HISTORY Procedure Laterality Date - NONE FAMILY HISTORY Problem Relation Age of Onset - Allergies Mother - Asthma Mother - [OTHER] Mother 12/23/09 - Hypertension Father maternal side - Diabetes Father maternal side - [OTHER] Father 12/23/09 SOCIAL HISTORY Social History Substance Use Topics - Smoking status: Never Smoker - Smokeless tobacco: Never Used - Alcohol use No REVIEW OF SYSTEMS Abdomen: No bloating, early satiety, indigestion, or increased flatulence. No abdominal pain, nausea, vomiting, diarrhea, or constipation. Bladder: No dysuria, gross hematuria, urinary frequency, urinary urgency, or incontinence. Breast: No breast lumps, nipple d/c, overlying skin changes, redness or skin retraction. Allergies and current medication updated:Yes EXAM: BP 102/60 Ht 5' 1.417ANDquot; (1.56m) Wt 120 lb (54.4kg) LMP 08/09/2017 BMI 22.37 kg/(m2). GENERAL: pleasant, female in no apparent distress HEENT: Normocephalic, atraumatic, mucus membranes moist and no lesions NECK: Supple, full range of motion, no adenopathy and thyroid normal DERMATOLOGY: Normal, without lesions, non-icteric and non-hirsute BREAST: soft, non-tender, symmetric, no dominant mass, normal nipple-areolar complex, no lymphadenopathy and no nipple discharge CHEST: Normal inspiratory effort ABDOMEN: soft, non-tender and no masses PELVIC: external genitalia normal, normal Bartholin's glands, urethra, Somers's glands, no vulvar lesions, no cervical lesions, good vaginal support, physiologic discharge present, normal appearing perineal body and perianal region BIMANUAL: uterus normal size, shape and consistency, no adnexal masses and non-tender NEURO: alert and oriented x3,exam grossly non-focal EXTREMITIES: normal ASSESSMENT/PLAN: 1) Health maintenance: Pap starting at the age of 21. Nutrition, exercise, and routine health maintenance exams reviewed. HPV vaccine completed series. Patient encouraged to use barrier devices with partner. 2) Contraception: none. Contraceptive options reviewed and information provided. 3) STD screening: Declined STD check. 4) Follow up one year or sooner as needed. DIRK Guerra APRN.CNM, APRN.CNM 08/16/2017 10:00 AM Signed ACOG Screening Guidelines (2015) The following health screening schedule is recommended by the [place] [employer] (ACOG). Some of these tests may be ordered or performed by your primary care doctor. Pap test screening The pap test looks at cells on the cervix (the opening from the vagina to the uterus) to look for cancer or pre-cancerous changes. These changes are caused by the human papillomavirus (HPV). Studies estimate that half of all women will test positive for this virus within 3 years of starting sexual activity. For young women with a normal immune system, 90% of HPV infections will resolve within 2 years. There is a vaccine available against some forms of HPV. This is recommended for girls and women age 9-26 and is a series of 3 injections over 6 months. Because this vaccine does not protect against all HPV types which can cause cervical cancer, women who received the vaccine still need pap tests. Pap smear screening should be started at age 21. The pap test should be done every 3 years from age 21-29. From age 30-65, pap smears can be done every 5 years if HPV test is negative or every 3 years if HPV testing is not done. For women over the age of 65, ACOG recommends against screening women who have had adequate prior screening and are not otherwise at high risk for cervical cancer. Women who have had a hysterectomy also do not need routine pap smear screening unless the pap smear was done for a cervical cancer or moderate to severe dysplasia. Breast cancer screening Mammogram should be performed every 1-2 years starting at age 40 and every year starting at age 50. Screening may be started earlier depending on family history. Cholesterol screening Lipid panel (cholesterol test) should be checked every 5 years starting at age 45. Diabetes screening Fasting glucose (blood sugar) test should be performed every 3 years starting at age 45. Colorectal cancer screening Starting at age 50, women should have a screening colonoscopy at least every 10 years. Screening may be started earlier depending on family history. Thyroid screening Thyroid function test (TSH) should be checked every 5 years starting at age 50. Bone mineral density screening All postmenopausal women age 65 and over and postmenopausal women with risk factors for osteoporosis should have a bone mineral density test performed. Risk factors include race, family history of osteoporosis, personal history of fractures, poor nutrition, smoking, heavy alcohol use, early menopause, low calcium intake and low body weight. Certain medical conditions and long-term use of some medications may also increase risk. Referring Provider: SELF [[id number]] Allergies As of Date: 08/16/2017 (No Known Allergies) Date Reviewed: 08/16/2017 Reviewed by: Claudia Ceron Ma - Fully Assessed Primary Visit Diagnosis:Encounter for gynecological examination (general) (routine) without abnormal findings [Z01.419] Prescriptions as of 08/16/2017 Sig: FLUOXETINE 20 MG CAPSULE Take 1 capsule by mouth once * CHOLECALCIFEROL (VITAMIN D3) * Take 1 capsule by mouth twice* Problem List As Of Date 08/16/2017 Noted Resolved Compulsive skin picking [L98.1] INVALID FOR* Other instructions from your clinician: ACOG Screening Guidelines (2015) The following health screening schedule is recommended by the [place] [employer] (ACOG). Some of these tests may be ordered or performed by your primary care doctor. Pap test screening The pap test looks at cells on the cervix (the opening from the vagina to the uterus) to look for cancer or pre-cancerous changes. These changes are caused by the human papillomavirus (HPV). Studies estimate that half of all women will test positive for this virus within 3 years of starting sexual activity. For young women with a normal immune system, 90% of HPV infections will resolve within 2 years. There is a vaccine available against some forms of HPV. This is recommended for girls and women age 9-26 and is a series of 3 injections over 6 months. Because this vaccine does not protect against all HPV types which can cause cervical cancer, women who received the vaccine still need pap tests. Pap smear screening should be started at age 21. The pap test should be done every 3 years from age 21-29. From age 30-65, pap smears can be done every 5 years if HPV test is negative or every 3 years if HPV testing is not done. For women over the age of 65, ACOG recommends against screening women who have had adequate prior screening and are not otherwise at high risk for cervical cancer. Women who have had a hysterectomy also do not need routine pap smear screening unless the pap smear was done for a cervical cancer or moderate to severe dysplasia. Breast cancer screening Mammogram should be performed every 1-2 years starting at age 40 and every year starting at age 50. Screening may be started earlier depending on family history. Cholesterol screening Lipid panel (cholesterol test) should be checked every 5 years starting at age 45. Diabetes screening Fasting glucose (blood sugar) test should be performed every 3 years starting at age 45. Colorectal cancer screening Starting at age 50, women should have a screening colonoscopy at least every 10 years. Screening may be started earlier depending on family history. Thyroid screening Thyroid function test (TSH) should be checked every 5 years starting at age 50. Bone mineral density screening All postmenopausal women age 65 and over and postmenopausal women with risk factors for osteoporosis should have a bone mineral density test performed. Risk factors include race, family history of osteoporosis, personal history of fractures, poor nutrition, smoking, heavy alcohol use, early menopause, low calcium intake and low body weight. Certain medical conditions and long-term use of some medications may also increase risk. Disposition: Return in 1 year (on 08/16/2018), or if symptoms worsen or fail to improve, for Annual Exam. Follow-up and Disposition History Recorded Encounter Status:Closed by ALEXA MOCK CNM on 08/16/17 GC/CHLAMYDIA AMPLIF Collected: 08/01/2017 Status: F Source: [place] 1:28 PM [facility] REPOSITORY TYPE CODE TESTS RESULT OUT OF REFERENCE UNITS RANGE LAB GCCTSR GC/Chlam Amp Urine Source LAB GCAMPL GC Negative Amplification for Neisseria gonorrhoeae by amplification. LAB CLAMPL Chlamydia Negative Amplif for Chlamydia trachomatis by amplification. Result Comment: For screening asymptomatic women, a vaginal swab specimen (APTIMA vaginal swab [id number]) is optimal. Urine specimens have reduced sensitivity for Chlamydia trachomatis or Neisseria gonorrh oeae infection in female patients without symptoms. This test was developed and its performance characteristics determined by [facility] [place] ([facility]). It has not been cleared or approved by the FDA. [facility] is regulated under CLIA as qualified to perform high-complexity testing. This test is used for clinical purposes. It should not be regarded as inv estigational or for research. Performed By: #### GCCT #### [facility] [address], [place] [address] Observed: 08/01/2017 Status: F Source: [place] URINE CULTURE 1:27 PM [facility] REPOSITORY Culture Result - No growth (<1,000 CFU/ml) Performed By: #### URCUL #### [facility] [address], [place] [address] PROGRESS Observed: 08/01/2017 Status: COMPLETED Source: [place] 12:07 PM [facility] REPOSITORY [facility] ID: [id number] Author: Carolyn Goodson (Priyank Landrum Service: (none) Author Type: Nurse Practitioner Type: Progress Notes Filed: 08/01/2017 12:18 PM Note Text: Patient brought in today by self presents today with urinary urgency, Left lower abd pain x 3-4 days; Is just past mid cycle of menses. No fevers or vomiting REVIEW OF SYSTEMS GENERAL: No weight loss, malaise or fevers; taking oral fluids ok; Appetite and activity normal GI: No nausea, vomiting, or diarrhea, constipation off and on : urgency, see HPI ANESTHESIOLOGIST AND CRITICAL CARE: Negative for abnormal vaginal bleeding, abnormal vaginal discharge. LMP: 07/09/17; No control, has a female partner; Had Hr Clerk appt 08/16/17 All other reviewed and negative other than HPI. GENERAL: alert and active in no apparent distress HEAD: Normocephalic EYES: conjunctiva clear, no drainage EARS: Right normal, Left normal NOSE/SINUSES : Nares normal. Septum midline. Mucosa normal. No drainage or sinus tenderness. OROPHARYNX : normal and moist mucous membranes NECK: normal, supple, no adenopathy LUNGS: clear to auscultation ABDOMEN : Abdomen is soft, sl tender LLQ, no guarding or rebound, without organomegaly or masses., BS+ SKIN : normal color, no jaundice or rash and turgor normal ASSESSMENT: Urinary frequency (primary encounter diagnosis) Urinary urgency LLQ pain--? Ovulation pain PLAN: As per orders Keep Hr Clerk appt To ER if severe LLQ pain Current Outpatient Prescriptions: FLUoxetine (PROZAC) 20 mg capsule Take 1 capsule by mouth once daily. cholecalciferol, vitamin D3, 400 unit cap Take 1 capsule by mouth twice daily. No current facility-administered medications for this visit. Carolyn Landrum CNP Social note: States just kicked out of house 1 day ago. Is in College and lives there and all is well there, but on Spring break this week. I offered back shoe worker to talk to her, but she states she will stop and speak to her senior qa engineer now--(it is an office close to here) Patient did not seem distraught or in any crisis mode. I shared this info with her PCP. Carolyn Landrum CNP CNOV Observed: 08/01/2017 Status: COMPLETED Source: [place] 11:30 AM [facility] REPOSITORY Office Visit (PEDSWS) ONESIMO KAY ([id number]) 1995 F Date Time Provider Department 08/01/17 11:30 AM CAROLYN LANDRUM (NAYAN) PEDSWS During your visit today, we recorded the following information about you: Temperature Pulse Respiration Blood pressure 98.9 degrees 76/minute 16/minute 112/64 Weight 54.9 kg Carolyn Landrum CNP 08/01/2017 12:18 PM Signed Patient brought in today by self presents today with urinary urgency, Left lower abd pain x 3-4 days; Is just past mid cycle of menses. No fevers or vomiting REVIEW OF SYSTEMS GENERAL: No weight loss, malaise or fevers; taking oral fluids ok; Appetite and activity normal GI: No nausea, vomiting, or diarrhea, constipation off and on : urgency, see HPI ANESTHESIOLOGIST AND CRITICAL CARE: Negative for abnormal vaginal bleeding, abnormal vaginal discharge. LMP: 07/09/17; No control, has a female partner; Had Hr Clerk appt 08/16/17 All other reviewed and negative other than HPI. GENERAL: alert and active in no apparent distress HEAD: Normocephalic EYES: conjunctiva clear, no drainage EARS: Right normal, Left normal NOSE/SINUSES : Nares normal. Septum midline. Mucosa normal. No drainage or sinus tenderness. OROPHARYNX : normal and moist mucous membranes NECK: normal, supple, no adenopathy LUNGS: clear to auscultation ABDOMEN : Abdomen is soft, sl tender LLQ, no guarding or rebound, without organomegaly or masses., BS+ SKIN : normal color, no jaundice or rash and turgor normal ASSESSMENT: Urinary frequency (primary encounter diagnosis) Urinary urgency LLQ pain--? Ovulation pain PLAN: As per orders Keep Hr Clerk appt To ER if severe LLQ pain Current Outpatient Prescriptions: FLUoxetine (PROZAC) 20 mg capsule Take 1 capsule by mouth once daily. cholecalciferol, vitamin D3, 400 unit cap Take 1 capsule by mouth twice daily. No current facility-administered medications for this visit. Carolyn Landrum CNP Social note: States just ANDquot;kicked out of houseANDquot; 1 day ago. Is in College and lives there and all is well there, but on Spring break this week. I offered back shoe worker to talk to her, but she states she will stop and speak to her senior qa engineer now--(it is an office close to here) Patient did not seem distraught or in any crisis mode. I shared this info with her PCP. JEANIE Hansen CNP 08/01/2017 12:18 PM Signed Orders reviewed. Patient verbalizes understanding. Referring Provider: SELF [200] Allergies As of Date: 08/01/2017 (No Known Allergies) Date Reviewed: 08/01/2017 Reviewed by: Carolyn Goodson (Nayan) Dennis - Fully Assessed Reason for Visit: Urinary Frequency [1086] Cmt: Noted x 3-4 days,usually at night, less volume of urine, No fevers, no pain currently. Abdominal Pain [1] Cmt: Noted at night, in lower left quadrant, wakes her at night frequently, none currently. Reason For Visit History Recorded Primary Visit Diagnosis:Urinary frequency [R35.0] Other Visit Diagnosis:LLQ pain [R10.32] Order(s):UA DIP B/O [[id number]] Order #: [id number] URINE CULTURE [SQURCUL] Order #: [id number] GC/CHLAMYDIA DNA DET [SQGCCAMP] Order #: [id number] Prescriptions as of 08/01/2017 Sig: FLUOXETINE 20 MG CAPSULE Take 1 capsule by mouth once * CHOLECALCIFEROL (VITAMIN D3) * Take 1 capsule by mouth twice* Problem List As Of Date 08/01/2017 Noted Resolved Compulsive skin picking [L98.1] INVALID FOR* Other instructions from your clinician: Orders reviewed. Patient verbalizes understanding. Medications Discontinued During This Encounter aluminum chloride (DRYSOL) 20 % exte* 1 Iraj* 3 01/06/2014 08/01/2017 Sig: Apply daily at bedtime to axillae prn Disc: Reason for discontinue is not on file. Disposition: Return if symptoms worsen or fail to improve. Follow-up and Disposition History Recorded Encounter Status:Closed by CAROLYN LANDRUM CNP on 08/01/17 PROGRESS Observed: 07/11/2017 Status: COMPLETED Source: [place] 11:45 AM [facility] REPOSITORY O ID: [id number] Author: Haley Link Service: (none) Author Type: Physician Type: Progress Notes Filed: 07/12/2017 8:23 AM Note Text: SUBJECTIVE: 21-year-old here for follow-up and reinitiation of medication treatment for anxiety. Patient was on Lexapro in the past so was prescribed by [facility] psychiatry. Most recently she was prescribed Zoloft from her [facility] and was taking 25 mg once daily for the past 2-1/2 months. She has also been seeing a counselor regularly at the [facility]. Her medication was not increased during that time. She feels the medication has not been helping and is having increased difficulty with anxiety and concentration issues. She has had some episodes of crying for no reason but does not feel that she is depressed. No suicidal thoughts or ideations. Past history of anxiety. Previous treatment modalities: individual therapy and medication. Anxiety or Depression risk factors and family history positive family history sister(s) Recent family stressors (marital, financial,or other) college student, finances SOCIAL HISTORY Marital Status: Single Tobacco Use: Never Alcohol Use: Not on file Drug Use: Not on file Sexual Activity: Not on file REVIEW OF SYSTEMS GENERAL: No weight loss, malaise or fevers RESPIRATORY: Negative for cough, hemoptysis, wheezing, COPD, dyspnea or shortness of breath CARDIOVASCULAR: Negative for chest pain, leg swelling, hypertension, CHF or palpitations GI: No nausea, vomiting, or diarrhea SKIN: Negative for lesions, rash, and itching NEURO: No history of headaches, syncope, paralysis, seizures or tremors All other reviewed and negative other than HPI. OBJECTIVE: BP 110/54 Pulse 72 Temp 36.4 ?C (97.6 ?F) (Temporal Artery) Resp 16 Wt 54.9 kg (121 lb) LMP 07/09/2017 BMI 22.13 kg/m2 Awake alert no distress Head- NC/AT , no lesions EYES-EOMI ,PERRLA, no strabismus Neuro no focal deficits, cranis nerves II-Xii intact, reflexes normal PSYCH: Posture and motor behavior: normal posture and motor behavior Dress, grooming, personal hygiene: normal dress and grooming Facial expression: good eye contact Speech: normal speech Mood: anxious Coherency and relevance of thought: normal thought processes Memory: normal memory IMP Angel (generalized anxiety disorder) (primary encounter diagnosis) PLAN Reviewed concept of anxiety as biochemical imbalance of neurotransmitters and rationale for treatment. Instructed patient to contact office or gyivo-ir-nwir after-hours promptly should condition worsen or any new symptoms appear Discussed in detail with parents if minor the FDA black box warning regarding the risk of increased suicidal ideation after starting on an SSRI in adolescents and patient agreed she would communicate this with myself or other trusted adult if she felt this was happening. Psychotherapy recommended: Yes-can continue at [place] recheck 6 weeks Haley Link MD over 25 minutes spent on this appointment. Over 90% were spent face to face with patient and included history and physical examination, coordination of care and counseling. ALLERGIES ALLERGIES DATE TYPE / CODE NAME / CODE REACTION SEVERITY SOURCE 05/02/2018 Drug No Known Unknown [facility] Allergy/416 Allergies/D97555 [facility] 977763(SNOM 5584(RXNORM) Repository ED CT) Drug NO KNOWN [facility] Class/18050 ALLERGIES Main [place] 1003(SNOMED Repository CT) ENCOUNTERS ENCOUNTERS ADMIT/DISCHARGE ACCOUNT ADMITTING ENCOUNTER LOCATION SOURCE NUMBER CLASS 04/28/2018 [id number] [facility] 04/24/2018/04/25/[id number] ing:[facility] Repository 03/14/2018/03/17/20 [id number] Ambulatory [address] Repository 12/20/2017/12/21/19 [id number] Ambulatory [address] Repository 12/20/2017/12/24/19 [id number] Ambulatory [address] Repository 08/16/2017/08/20/19 [id number] Ambulatory [address] Repository 08/01/2017/12/21/19 [id number] Ambulatory [address] Repository 07/11/2017/07/11/19 [id number] Ambulatory [address] Repository PAYERS PAYERS ENCOUNTER GUARANTOR PAYER SUBSCRIBER SOURCE 04/28/2018 ONESIMO Diaz Primary ONESIMO [id number] Insurance:CARESOURCEP [facility] Number: [id number] [id number] Repository [address]Rzb: (330) Date:2018-04-24P O [phone] () [address]ATTN: [place] [address]RV: 04/28/2018 Secondary NOT GIVENUNK Eli Insurance:SELF PAY [facility] Number: Effective Repository Date:2018-04-26 04/24/2018 ONESIMO Diaz Primary ONESIMO Joe Eli [id number] Insurance:[facility]: [facility] Number: [id number], [place] [id number] Repository 94439Xgm: (330) Date:2018-04-24P O [phone] () [address]ATTN: [place] [address]NH: 04/24/2018 Secondary NOT GIVENUNK Eli Insurance:SELF [facility]Y [facility]: Effective Repository Date:2018-04-24
== END 2018-04-25 23:59 ==
LOC: BHPHP 08:30
PROVIDERS: Family Provider Pediatrics; PCP Pediatrics; Visit Provider Psychiatry & Neurology Psychiatry
DX: F33.1 Major depressive disorder, recurrent, moderate (principal)
CPT/HCPCS: H0035; H2012; H2020; T1002; 90834

== ENCOUNTER 2018-04-28 09:00 | Outpatient (RCR) | payer MEDICAID, SELFPAY ==
[2018-04-26 02:13] VITALS: BP 98/50; PULSE 66; RESP 14
--- NOTE | 2018-04-28 09:10 | BH.SGPN.GN ---
Behaviors/Verbalizations/Mental Status: [] Eye contact is good. Motor activity is appropriate. Appearance is casual. Speech is Appropriate. Mood is anxious. Affect is congruent. Thoughts are linear and logical. No evidence of psychosis. Reviewed daily check in sheet and no reports of suicidal ideations or intent. Client Response/Progress/Benefit: [] Pt was an active participant in group activity and discussion. Emotion for today is relaxed. Shared with the group improved mood relating this to spending time with a possible romantic interest. Discussed some possible negatives to starting a new relationship soon after break-up however decided to pursue anyway. Emotions were erratic reporting times of happiness, sadness,and anxiety. Utilizing some coping skills such as mindfulness and breathing techniques. Friend asked her to come up with 5 negative thoughts and ways to change them to positive which she began to work on. Reports being better than she was last week. Continues to rely heavily on external support and distractions to manage mood however has begun some internal coping strategies. Benefited from group support and encouragement. Progress noted per pt report. Will continue PHP to maintain safety, stabilize mood, prevent decompensation, and process grief. Narrative Note: []
--- NOTE | 2018-04-28 10:15 | BH.SGPN.GN ---
Behaviors/Verbalizations/Mental Status: [] Pt eye contact good, casually dressed, motor activity appropriate, speech normal rate and tone, mood euthymic, congruent affect, thoughts linear and intact, no evidence of delusions or hallucinations. Client Response/Progress/Benefit: []Pt contributed thoughts and ideas to discussion, attentive to peers. When processing quote pt reported she believes other people can be an obstacle to progress, but recognizes her reaction to others can either make the obstacle easier or more difficult to overcome. Pt shared she can be her own worst critic which also can become an obstacle to progress. Pt reported in her current reality she feels hopeless and lost. Elaborated it is like she is floating with no direction. Pt shared in her desired reality she wants to feel grounded, increased stability, decrease in depression, and direction for her life. Pt seemed to benefit from identifying future goal for her mental wellness. Narrative Note: []
--- NOTE | 2018-04-28 11:14 | BH.SGPN.GN ---
Behaviors/Verbalizations/Mental Status: [] Pt eye contact good, casually dressed, motor activity appropriate, speech normal rate and tone, mood euthymic, congruent affect, thoughts linear and intact, no evidence of delusions or hallucinations. Client Response/Progress/Benefit: [] Client contributed positively discussion and listened attentively to others. Client shared her obstacles to reaching her desired reality include: Excuses, anger, guilt, apathy, uncertainty, fear, and feeling alone. Client identified making excuses to not be better and uncertainty to be her most impactful obstacles that are holding her back from getting to her desired reality. Client able to identify some skills and strategies to overcome various obstacles that keep people from progress. Client seem to benefit from increasing awareness of strategies that can help her overcome her own personal obstacles that are keeping her from her desired reality. Client to continue [facility] level care to increase stability, improve daily functioning, and prevent decompensation. Narrative Note: []
--- NOTE | 2018-04-29 09:08 | BH.SGPN.GN ---
Behaviors/Verbalizations/Mental Status: []Client alert and oriented, casual dress. Eye contact good. Motor activity appropriate. Speech rapid, circumstantial. Affect congruent to mood, mood agitated. Thoughts preoccupied no signs of hallucinations or delusions. Reviewed client?s symptom tracker, no risk for suicidal ideation, plan, or intent as of 04/29/18. Client Response/Progress/Benefit: []Client responded well to session, receptive to feedback from peers. Client reports feeling ?aggravated? today due to ongoing conflict with her roommates. Client expressed feeling frustrated because of the lack of communication and per client?s report, inappropriate use of money meant for bills. Client reported if they do not solve the problem soon, there will be consequences which is increasing client?s anxiety. Client acknowledged the living situation as unhealthy, but she feels ?like I have to stay.? Client received ideas from the group and decided she wants to address the issue in person with one of the roommates. Client identified making it to group today as a positive and shared venting helped improve her mood somewhat. Client to continue PHP as she continues to endorse ruminative anxiety. Per client?s report, she lacks implementation of healthy coping skills which could hinder progress.
--- NOTE | 2018-04-29 10:16 | BH.SGPN.GN ---
Behaviors/Verbalizations/Mental Status: [Eye contact good, casually dressed - wearing a winter hat, motor activity appropriate, speech normal rate and tone, mood anxious, congruent affect, thoughts linear and intact, no evidence of delusions or hallucinations.] Client Response/Progress/Benefit: [Client responded well to session, active participant. Client indicated connecting with the topic of conflict resolution as she indicated that ?I am having major conflicts with my roommates and don?t know how to deal with it safely?. Client went on to identify that in conflict sometimes both parties can win, or both can lose, citing the media and journalism as examples. Client identified her conflict resolution style as avoidant type when it comes to conflicts with herself and accommodating or avoidant with others. Client shared when dealing with internal conflict she finds ?it is harder to confront truths inside yourself than in others. Client shared her current conflict resolution style has recently resulted in an influx of anxiety and fear of how the other person will respond. Client appeared to benefit from increasing awareness of personal conflict resolution style as well as gaining insight into the differing types of conflict resolution. Progress noted in client's increased awareness but can continue to improve with more consistent application of effective communication when facing conflict.] Narrative Note: []
--- NOTE | 2018-04-29 11:17 | BH.SGPN.GN ---
Behaviors/Verbalizations/Mental Status: [Eye contact good, casually dressed - wearing a winter cap, motor activity appropriate - some restlessness AEB client picking at face, speech normal rate and tone, mood dysthymic, anxious, congruent affect, thoughts linear and intact, no evidence of delusions or hallucinations.] Client Response/Progress/Benefit: [Client responded well to session, active participant. Client reported she tried to use a more cooperative conflict resolution style during the activity, though identified at times taking on a more accommodating approach when others asserted their opinion or client felt things were not moving quickly enough. Client did well to connect this with her approach to conflict in daily life as she indicated struggling with urges to avoid or accommodate when feeling overpowered by others. Client helped the group identify strategies to improve conflict resolution such as be willing to listen to the other person?s opinion and expressing your own needs. Client shared she plans to use strategies from today's group to better plan for how she will approach current conflict with her roommates. Client appeared to benefit from learning various conflict resolution strategies. Client to continue IOP to decrease anxiety and depression as well as prevent decompensation.] Narrative Note: []
--- NOTE | 2018-04-29 14:38 | BH.MDN ---
Multi-Disciplinary Note - Note 30-min Individual Time Started:: 12:25 Date: 04/29/18 Purpose of session/treatment goals addressed:: Purpose of session was to assess pt's current symptoms and stressors. Other topics included: conflict resolution, self-care. Eye Contact:: Good, Fair Motor Activity:: Appropriate Appearance:: Casual Speech:: Appropriate Mood:: Anxious Affect:: Constricted Thoughts:: Racing, No evidence of hallucinations/delusions noted Staff Interventions:: Therapist used open ended questions to elicit pt's current symptoms and stressors. Therapist assisted pt with problem solving a conflict situation. Therapist provided education about importance of setting boundaries and consequences of giving in to set boundaries. Assisted pt with managing anxiety in session. Reminded pt of her goal to complete self-care wheel by . Client Response:: Pt reported she was feeling stressed and anxious because more problems are happening with her roommates. Pt shared she found out they owe a lot more money for electric due to pt's roommate not paying on time. Pt reported frustration with her roommates and expressed I don't know what to do. In session pt became anxious due to one of the pt's roommates texting her about being mad pt switched the bill from email to paper copy. Pt appeared anxious and admitted she just wanted to give in to the boundary she set because she doesn't like to make others mad. Pt able to identify reasons to maintain the set boundaries. Pt agreed with therapist to focus on what she can do and not worry about what might happen with her roommates. Pt identified to help her decrease worry about her roommate situation she is going to decompress by talking to one of her friends and plans to go shopping with a different support person. Pt reported her goal for the day is to complete the self-care wheel for . Risks/Concerns:: Pt denies suicidal ideation, plan or intention to date. Progress Toward Goals/Plan:: Pt showing progress with setting boundaries by confronting roommates instead of staying quiet even when she knew she was being taken advantage of. Pt reporting decrease in depressive symptoms. Continuing to struggle with generalizing healthy coping skills. Pt to continue PHP level of care to decrease anxiety, increase generalization of healthy coping, and prevent decompensation. Time Stopped:: 12:55
--- NOTE | 2018-04-30 09:02 | BH.SGPN.GN ---
Behaviors/Verbalizations/Mental Status: [] Pt eye contact good, casually dressed, motor activity appropriate, speech normal rate and tone, mood anxious, congruent affect, thoughts linear and intact, no evidence of delusions or hallucinations. Reviewed client?s symptom tracker, no signs of suicidal ideation, plan, or intent as of today. Client Response/Progress/Benefit: [] Patient listened attentively to others and contributed thoughts and feelings to discussion. Client shared one positive is tonight she is going to spend time with her friend's family making sushi which she is excited about. Client shared tomorrow soon to go spend time with her grandmother whom she has not seen in a while. 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 Client reported her stressor is the situation in which her roommates are not paying the bills which is causing tension within the home and financially is frustrating. Client seem to benefit from expressing thoughts and feelings and receiving support from peers. Client demonstrated progress as evidenced by client not spending as much time ruminating or worrying about the roommate situation as she has in the past. Client to continue IOP level of care to stabilize mood, increase use of healthy skills, and prevent decompensation. Narrative Note: []
--- NOTE | 2018-04-30 10:05 | BH.SGPN.GN ---
Behaviors/Verbalizations/Mental Status: []Client alert and oriented, casual dress, hygiene good. Eye contact fair. Motor activity appropriate. Speech within normal limits. Affect flat, mood depressed. Thoughts linear, logical, no signs of hallucinations or delusions. Client Response/Progress/Benefit: []Client responded well to session, quiet, but participating when prompted. Client reported taking action is important for improving mental health, but it is hard to leave one?s comfort zone. Client shared there are numerous barriers that prevent people from taking action such as anxiety and negative thinking. Client identified things holding client back from improved mental wellness such as letting others control how she feels, anxiety and worry, cognitive distortions, ?sponging? others? stress, lack of acceptance, and guilt. Client stated overcoming these things holding her back would improve client?s mental health because ?I?d have more energy to do stuff? and would feel less depressed. Client engaged in the activity symbolizing the ability to let go of the things holding client back. Client appeared to benefit from gaining awareness of the barriers holding client back from increased mental wellness. Progress noted in client?s increased self-awareness of barriers, but she can continue PHP to increase mood stability and learn healthy coping skills.
--- NOTE | 2018-04-30 11:08 | BH.SGPN.GN ---
Behaviors/Verbalizations/Mental Status: []Client alert and oriented. Casual dress, hygiene good. Eye contact good. Motor activity appropriate. Speech within normal limits. Affect constricted, mood dysthymic, anxious. Thoughts linear, logical, no signs of hallucinations or delusions. Client Response/Progress/Benefit: []Client responded well to session, participating in discussion. Client appeared to connect with the different zones of change and acknowledged one must leave the comfort zone to grow and change. Client began creating a 30-day action plan to stop putting her needs last. Client stated her motivator for this is wanting to set boundaries and make decisions. Client identified small goals to help her achieve not putting her needs last such as increasing communication of needs, challenging thoughts, and setting boundaries. Client appeared to benefit from creating action steps to achieve her goal of putting her needs last. Client progressing with acknowledging negative thoughts, but she can continue to increase consistent application of healthy coping skills and improve mood stability.
--- NOTE | 2018-05-01 09:05 | BH.SGPN.GN ---
Behaviors/Verbalizations/Mental Status: []Client alert and oriented, casual dress-wearing makeup today. Eye contact good. Motor activity appropriate. Speech tangential. Affect congruent, mood euthymic, anxious. Thoughts linear, logical, no signs of hallucinations or delusions. Reviewed client?s symptom tracker, no risk for suicidal ideation, plan, or intent as of 05/01/18. Client Response/Progress/Benefit: []Client responded well to session, active participant. Client reports feeling ?a little anxious, but mostly positive? today. Client stated issues with her roommates and bills continue to be an ongoing stressor for client, but client is ?trying not to think about it? and focus on the facts. Client reported she also plans to have the conversation with her roommates in person to prevent potential communication barriers. 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 Another positive client shared was getting good sleep and going out to eat last night with positive supports. Client appeared to benefit from reinforcing healthy coping skills to help client manage conflict and anxiety. Progress noted as shown by client?s report of trying to focus on the facts rather than ruminations. Client to continue PHP to increase mood stability and boundary setting.
--- NOTE | 2018-05-01 10:10 | BH.SGPN.GN ---
Behaviors/Verbalizations/Mental Status: [] Pt eye contact good, casually dressed, motor activity appropriate, speech normal rate and tone, mood anxious, congruent affect, thoughts linear and intact, no evidence of delusions or hallucinations. Client Response/Progress/Benefit: []Pt passive participant AEB pt's limited contributions to discussed, appeared to be listening to peers. Pt seemed to connect with peers comments that personal growth doesn't occur by chance, it takes effort to make changes as shown by pt nodding her head. Pt agreed needs balance between positive and negative forces so the negative forces don't keep her from moving forward. Pt showed increased engagement during activity AEB sharing ideas and leading group at times. Pt able to identified communication as a positive force that can help with moving towards progress. Pt seemed to benefit from increased awareness of importance of balancing positive and negative forces. Narrative Note: []
--- NOTE | 2018-05-01 11:12 | BH.SGPN.GN ---
Behaviors/Verbalizations/Mental Status: [] Pt eye contact good, casually dressed, motor activity appropriate, speech normal rate and tone, mood euthymic, congruent affect, thoughts linear and intact, no evidence of delusions or hallucinations. Client Response/Progress/Benefit: [] Client contrecoup discussion and listened attentively to others. Client reported positive forces to include past experiences, communication, friends, and other support people. Client reported her negative forces to include distractions, worry, procrastination and negative self talk. Client reported she has some instability at times but overall recognizes she is progressing. Client reported open communication to be her strongest force that is helping her move forward. Client reported her goal is to list her worries and pick the worries that she can challenge and reframe. Client seem to benefit from increased awareness of her negative and positive forces. Client to continue [facility] level care to maintain gains, increase use of healthy coping skills, and prevent decompensation. Narrative Note: []
--- NOTE | 2018-05-02 09:05 | BH.SGPN.GN ---
Behaviors/Verbalizations/Mental Status: []Client alert and oriented, disheveled appearance, client reporting wearing the same clothes she wore to bed. Eye contact good. Motor activity appropriate. Speech tangential. Affect constricted, mood anxious. Thoughts linear, logical, no signs of hallucinations or delusions. Reviewed client?s symptom tracker, no risk for suicidal ideation, plan, or intent as of 05/02/18. Client Response/Progress/Benefit: []Client responded well to session, providing supportive statements. Client reports feeling ?mostly positive, but a bit nervous? today. Client stated, ?as I get closer and closer to going back to school I get more anxious.? Client reports plan to confront her roommates today about the issues with paying bills. The group gave client supportive statements and ideas for communicating her needs without becoming aggressive or accusatory. Client shared she wrote down her boundaries which will help client focus on what she wants out of the discussion with her roommates. Client reported she plans to manage her anxiety today by staying busy and listening to music. Client appeared to benefit from identifying strategies to manage anxiety and effectively communicate her needs. Progress noted as client shown by client identifying her personal boundaries. Client to discharge from [facility] today, but she is to continue IOP to promote mood stability and increase application of coping skills.
--- NOTE | 2018-05-02 11:11 | BH.NOTE ---
BH: Inpatient Note - Notes Behavioral Health Inpatient Note: Per verbal order from Dr. Bess, the following prescription was called into [facility] (on [address] in [place], [place]): aripiprazole 2mg PO daily #30, NO refills Client is to start this medication in addition to her fluoxetine. Rocky Prather BSN, RN
--- NOTE | 2018-05-02 11:15 | BH.SGPN.GN ---
Behaviors/Verbalizations/Mental Status: [Client maintained good eye contact, casually dressed, motor activity restless shifting in seat and coloring, speech normal rate and tone, mood anxious, dysthymic, affect congruent, thoughts linear, logical, no evidence of delusions or hallucinations.] Client Response/Progress/Benefit: [Client active participant and contributed to discussion AEB client providing input and examples to the group. Willing to participate in growth mindset reflection activity and indicated difficulties in challenging her fixed thoughts, discussing that she can relate to others sharing beliefs that the negative thoughts have been ?ingrained?. Client share often not realizing when she if falling into a fixed thought pattern, making it more difficult to challenge and replace these thoughts. Client receptive of and appeared to benefit from group support and feedback as well as discussing strategies for promoting a growth mindset in daily life. Client replaced fixed thought of ?failing it not an option? to ?I can learn from my failures, it doesn?t mean I?m a failure?. Progress noted in ability to connect with materials discussed and begin challenging negative thinking patterns. Continued IOP to prevent decompensating and continue to promote healthy coping behaviors.]] Narrative Note: []
--- NOTE | 2018-05-02 12:10 | BH.NA ---
Physical Data - Vital Signs Pulse Rate: 66 Respiratory Rate: 14 Blood Pressure: 98/50 - Height/Weight Height: 1.55 m Weight:: 53.524 kg Weight in Pounds: 118.0 lbs Medical Problems/History - Family History Family History: Family History (Last Updated 04/24/18 @ 14:33 by CHARITO Sarabia RN) Mother CAD (coronary artery disease) Asthma
--- NOTE | 2018-05-05 09:10 | BH.SGPN.GN ---
Behaviors/Verbalizations/Mental Status: [] Eye contact is good. Motor activity is appropriate. Appearance is casual. Speech is Appropriate. Mood is depressed. Affect is flat. Thoughts are linear and logical. No evidence of psychosis. Reviewed daily check in sheet and pt reports suicidal ideations and intent 0/5 Client Response/Progress/Benefit: [] Pt was an active participant in group discussion. Emotion for today is Stressed. Shared with the group a negative event that occurred over the weekend with her roommates. She utilized assertive communicate regarding a situation and felt as if her roommates did not respond in an appropriate manner. At one point they mentioned her mental health in a negative fashion. This led to pt getting tearful and isolating to her room. She talked about feeling as if she was gaslighted. She felt as if her attempt at being assertive was a failure due to the end results. Group was able to reframe the event and even though the results were not positive pt was still assertive. Group discussed how being assertive does not always mean the other person will respond in an appropriate way. Reframing benefited pt. Followed through with goals. Will continue in program to prevent decompensation, increase functioning, and maintain safety. Narrative Note: []
--- NOTE | 2018-05-05 10:15 | BH.SGPN.GN ---
Behaviors/Verbalizations/Mental Status: []Client alert and oriented, casual dress, hygiene fair. Eye contact good. Motor activity appropriate. Speech within normal limits. Affect constricted, mood dysthymic. Thoughts linear, logical, no signs of hallucinations or delusions. Client Response/Progress/Benefit: []Client responded well to session, contributing positively. Client connected with the topic of cognitive distortions sharing ?our brains go to the negative and that?s not always true.? Client reported ?you can make a self-fulfilling prophecy by your thoughts.? Client helped the group identify the different types of cognitive distortions. Client shared she used catastrophizing this morning. Client reported she was anxious and felt defeated this morning ?I thought everyone in group was going to be disappointed in me, but that wasn?t the case.? Client appeared to benefit from increasing awareness of a recent cognitive distortions and challenging it. Client to continue PHP as she continues to struggle with consistent implementation of healthy coping skills to manage anxiety and depression.
--- NOTE | 2018-05-05 11:17 | BH.SGPN.GN ---
Behaviors/Verbalizations/Mental Status: []Client alert and oriented, casual dress, hygiene fair. Eye contact good. Motor activity appropriate. Speech within normal limits. Affect constricted, mood irritable, dysthymic. Thoughts linear, logical, no signs of hallucinations or delusions. Client Response/Progress/Benefit: []Client responded well to session, participating in activity. Client engaged in group activity that demonstrated the effort it takes to challenge and change cognitive distortions. Client stated the group reminded client that ?it?s obviously going to take time? to change negative thought patterns. Client able to identify, challenge, and reframe example cognitive distortions in the group. Client listened as the group identified strategies to combat cognitive distortions. Client appeared to benefit from learning about cognitive distortions and gaining insight to the effort it takes to reframe distortions. Client to continue PHP as she can continue to increase consistent implementation of healthy coping skills to manage anxiety and depression.
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
--- NOTE | 2018-05-05 11:30 | BH.MDN_ITS ---
Multi-Disciplinary Note - Note 45-min Individual Time Started:: 12:13 Date: 05/01/18 Purpose of session/treatment goals addressed:: Purpose of session was to assess pt's current symptoms and stressors. Other topics include: reviewing self-care wheel and setting goals for weekend. Eye Contact:: Good Motor Activity:: Appropriate Appearance:: Casual Speech:: Appropriate Mood:: Euthymic Affect:: Congruent Thoughts:: Linear, Logical, No evidence of hallucinations/delusions noted Staff Interventions:: Therapist used open ended questions to elicit pt's current symptoms and stressors. Therapist reviewed pt's homework from previous individual session. Therapist elicited which areas of self-care pt is fulfilling and what she can do over the weekend to focus on other areas of self-care. Homework provided for pt to do at least 2 things off her self-care wheel over the weekend. Client Response:: Pt reported yesterday was a good day because she had her concert, which pt stated went really well. Pt shared she was excited she was able to complete the self-care wheel despite having a lot to get done before her concert. Pt able to identify at least 2 things that fall under the following categories of the self-care wheel: physical, psychological, emotional, spiritual, professional, and personal. Pt identified there are several things she is doing that are self-care, which previously she didn't recognize has self- care. Pt shared over the weekend she will focus on communicating her needs, setting boundaries, and journal as ways to increase her self-care. Risks/Concerns:: Pt denies suicidal ideation, plan or intention to date. Progress Toward Goals/Plan:: Pt demonstrating progress by completing homework provided. Progress noted with pt being able to identify several things she can do for self-care. Pt recognizes importance of taking care of self because she admitted it's not something she has spent a lot of time doing in the past. Pt to continue PHP level of care to maintain gains and prevent decompensation. Time Stopped:: 12:55
--- NOTE | 2018-05-05 12:08 | BH.PSA ---
Development & Family of Origin - Family History Family History: Family History (Last Updated 04/24/18 @ 14:33 by FERN SarabiaN RN) Mother CAD (coronary artery disease) Asthma
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
--- NOTE | 2018-05-06 10:10 | BH.SGPN.GN ---
Behaviors/Verbalizations/Mental Status: [] Pt eye contact good, casually dressed, motor activity appropriate, speech normal rate and tone, mood euthymic, congruent affect, thoughts linear and intact, no evidence of delusions or hallucinations. Client Response/Progress/Benefit: []Pt listened attentively to others and contributed thoughts and ideas to discussion. Pt reported she has a lot of external supports, but does not have many internal coping skills to help herself independently when external supports are not available. Pt connected importance of having balance between internal and external coping skills because if have over reliance on one type of support could lead to increased problems. Pt seemed to benefit from increased self awareness of how her over reliance on external supports could negatively impact her when her external supports are not available. Narrative Note: []
--- NOTE | 2018-05-06 11:15 | BH.SGPN.GN ---
Behaviors/Verbalizations/Mental Status: [] Pt eye contact good, casually dressed, motor activity appropriate, speech normal rate and tone, mood dysthymic, congruent affect, thoughts linear and intact, no evidence of delusions or hallucinations. Client Response/Progress/Benefit: []Pt engaged and active throughout session AEB contributing to group and listening attentively to others. Pt worked cooperatively with peers to identify various healthy coping skills. Pt recognized importance of having healthy internal skills, not an overreliance on just one category of healthy skills. Pt identified five healthy coping skill she is willing to practice includes: reading, exercise, bath, driving, and thought log. Pt seemed to benefit from increasing repertoire of healthy coping as well as identifying 5 skills she is willing to practice. Pt to continue IOP level of care to stabilize moods, generalize skills, and prevent decompensation. Narrative Note: []
--- NOTE | 2018-05-07 16:26 | BH.MDN_ITS ---
Multi-Disciplinary Note - Note 60-min Individual Time Started:: 12:12 Date: 04/28/18 Purpose of session/treatment goals addressed:: Purpose of session was to assess current symptoms and stressors. Other topics: interpersonal relationships and self-care. Eye Contact:: Good Motor Activity:: Appropriate Appearance:: Casual Speech:: Appropriate Mood:: Anxious, Other - tearful at times Affect:: Congruent Thoughts:: Circular, No evidence of hallucinations/delusions noted Staff Interventions:: Therapist used open ended questions to elicit pt's current symptoms and stressors. Therapist inquired about homework from last individual session. Therapist gently challenged pt's perspective, helping pt see her interpersonal relationship situation from all sides. Therapist educated pt about importance of self-care and provided worksheet for homework for pt to add at least 2 things she can do to fulfill the different areas of self-care. Client Response:: Pt reported she had an overall good weekend. Pt reported she did not have time to complete homework assisngment from last session. Pt shared she spent time with one of her friends. Pt identified she is now friends with benefits, which pt believes can work out. Pt shared she initially wanted to maintain a single life for the next few months, but really enjoys her time with her friend. Pt reported there is open communication with this friend about importance of pt focusing on her own treament and not allowing interpersonal relationships be a distraction. Pt reported this friend is extremely supportive and often encourages pt to complete daily goals. Pt sought validation from therapist about whether she is making good choices. Pt recognizes she needs external validation from others because doesn't often trust her own judgements. Therapist encouraged pt to answer her own question on whether she is making a good choice about her friend situation because it is unhelpful for therapist to tell pt what she should be doing. Pt reported if she maintains open communicatio n with the friend she thinks the friends with benefits situation will work out. Pt reported she does not do well with self-care and open to completing the self-care wheel. Risks/Concerns:: Pt denies SI, plan or intention to date. Progress Toward Goals/Plan:: Progress noted with pt reporting decrease in depressive symptoms and having increased recognition of her negative thought patterns. Pt continuing to struggle with seeking external validation, difficulty seeing potential consequences from choices, and anxiety. Pt did not complete homework again which could be barrier to progress. Pt to continue PHP level fo care to increase self-esteem, increase use of healthy skills, and prevent decompensation. Time Stopped:: 13:11
--- NOTE | 2018-05-08 09:00 | BH.SGPN.GN ---
Behaviors/Verbalizations/Mental Status: [] Eye contact is good. Motor activity is appropriate. Appearance is casual. Speech is Appropriate. Mood is anxious. Affect is congruent. Thoughts are linear and logical. No evidence of psychosis. Reviewed daily check in sheet and no reports of suicidal ideations or intent. Client Response/Progress/Benefit: [] Pt was an active participant in group discussion. Emotion for today is tired. Shared decreased sleep last evening. Shared ruminating thoughts, restlessness, and depressive symptoms last evening. Had a difficult time distracting herself and controlling racing thoughts. Shared that she baked some cookies and got a haircut to help with distraction. Struggles with being alone. Did not that she believes that her concentration and focus have improved since starting the program. Benefited from group support and encouragement. Will continue in program to maintain safety, prevent decompensation, and improved functioning so that she can return to school/work,. Narrative Note: []
--- NOTE | 2018-05-08 10:00 | BH.SGPN.GN ---
Behaviors/Verbalizations/Mental Status: [] Pt eye contact good, casually dressed, motor activity appropriate, speech normal rate and tone, mood depressed, congruent affect, thoughts linear and intact, no evidence of delusions or hallucinations. Client Response/Progress/Benefit: []Pt listened attentively to others and contributed thoughts and ideas to group discussion. Pt agreed with others it's important to be flexible because having flexible thinking will help one deal with hardships more effectively due to being willing to see different perspectives and ways to resolve or overcome a problem. Pt showed decreased engagement when working in small groups to discuss the various strategies that can help one increase ability to be resilient. Pt identified 2 things she can take away from group to include: take decisive action and focus on small manageable goals instead of trying to accomplish everything at once. Narrative Note: []
--- NOTE | 2018-05-08 11:10 | BH.SGPN.GN ---
Behaviors/Verbalizations/Mental Status: [] Pt eye contact good, casually dressed, motor activity appropriate, speech normal rate and tone, mood dysthymic, congruent affect, thoughts linear and intact, no evidence of delusions or hallucinations. Client Response/Progress/Benefit: []Pt active participant AEB pt engaging in group activity, contributing to discussion, and attentive to peers. When processing activity pt identified the group was able to be resilient by not giving up and learning from past experiences. Pt reported she has learned from session that it's important to utilize supports when needed and she has the power to increase her personal resilience. Pt reported on her stress ball she wrote You can do it. Pt shared this phrase will help remind her she can be resilient by not giving up and being persistent. Pt seemed to benefit from engaging in activity to rehearse the different resiliency building blocks. Pt to continue PHP level of care to maintain gains, increase generalization of skills, and prevent decompensation. Narrative Note: []
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
--- NOTE | 2018-05-13 09:05 | BH.SGPN.GN ---
Behaviors/Verbalizations/Mental Status: [] Pt eye contact good, casually dressed, motor activity appropriate, speech normal rate and tone, mood euthymic, congruent affect, thoughts linear and intact, no evidence of delusions or hallucinations. Reviewed client?s symptom tracker, no signs of suicidal ideation, plan, or intent as of today. Client Response/Progress/Benefit: [] Client listened to others and provided feedback and support to peers. Client reported her best friend is home for 2 weeks and has had good couple days hanging out with him. Client shared another positive is improved sleep which is helping her not feel as drowsy and fatigued throughout the day compared to last week. Client shared her roommate situation is still tense however recognizes progress with not allowing the situation to impact her emotions as much. Client reported her stressor is finances because not working and having to be able to still pay for her bills. Client identified overall her moods have been more stable and she is feeling more equipped to handle stress effectively. Client progressing with reporting decreased depression and mood stability. Client to continue IOP level of care to maintain gains, increase use of healthy coping skills, and prevent decompensation. Narrative Note: []
--- NOTE | 2018-05-14 09:00 | BH.SGPN.GN ---
Behaviors/Verbalizations/Mental Status: [] Pt eye contact good, casually dressed, motor activity appropriate, speech normal rate and tone, mood euthymic, congruent affect, thoughts linear and intact, no evidence of delusions or hallucinations. Client Response/Progress/Benefit: [] Client active participant as shown by sharing thoughts and feelings as well as making comments to peers. Client reported her mood is continuing to maintain stability. Client shared one positive is spending time with her best friend's family making dinner. Client shared another positive is doing a holiday craft with her best friend's family. Client reported she has noticed a decrease in anxiety and depression which she attributes to having increased support from her best friend's family as well as attending IOP which is helped her learn skills and strategies is to manage her symptoms. Client demonstrated progress as evidenced by client reporting decreased depression and anxiety. Client to continue IOP level of care to maintain gains and prevent decompensation. Narrative Note: []
--- NOTE | 2018-05-14 10:02 | BH.SGPN.GN ---
Behaviors/Verbalizations/Mental Status: []Client alert and oriented, casual dress, hygiene fair. Eye contact good. Motor activity restless-skin picking. Speech within normal limits. Affect flat, mood anxious, irritable. Thoughts linear, logical, no signs of hallucinations or delusions. Client Response/Progress/Benefit: []Client responded well to session, engaged in activity and discussion. Client reported pitfalls are things that get a person stuck. Client reported for her a barrier to making positive changes is ?I overthink everything.? Client shared other barriers include lack of awareness, comfort, and lack of emotional regulation. Client engaged in activity and reported without awareness of pitfalls, ?how do I know what adjustments to make if I don?t know where they are??Client seemed to benefit from increased awareness of how personal pitfalls can impact treatment progress.
--- NOTE | 2018-05-14 11:10 | BH.SGPN.GN ---
Behaviors/Verbalizations/Mental Status: []Client alert and oriented, casual dress, hygiene fair. Eye contact good. Motor activity appropriate. Speech within normal limits. Affect constricted, mood euthymic. Thoughts linear, logical, no signs of hallucinations or delusions. Client Response/Progress/Benefit: []Client participating in the discussion and listening attentively to others. Client connected the importance of self-awareness, utilizing supports, and communication to help overcome personal pitfalls. Client shared her personal pitfalls include: toxic people, skin-picking, overthinking, self-sabotage, self-hate, anxiety, and boundaries. Client reported she will focus on reducing self-hate by journaling and practicing saying affirmations. Client seemed to benefit from increased awareness of personal pitfalls and identifying strategies that can help client overcome current or future pitfalls. Client to continue PHP level of care to increase mood stability and application of healthy coping skills.
--- NOTE | 2018-05-15 09:00 | BH.SGPN.GN ---
Behaviors/Verbalizations/Mental Status: []Client alert and oriented, casually dressed, hygiene good. Eye contact good. Motor activity restless- sitting on the floor at one point. Speech within normal limits. Affect flat, mood dysthymic. Thoughts linear, logical, no signs of hallucinations or delusions. Reviewed client?s symptom tracker, no risk for suicidal ideation, plan, or intent as of 05/15/18. Client Response/Progress/Benefit: []Client responded well to session, distracting at times AEB client sitting on the floor with her shoes off. Client reports feeling ?numb? today due to experiencing two upsetting dreams last night. Client stated she was able to use internal coping skills by talking herself through the upsetting dream. Client said she has managed feeling numb in the past by ?riding it out.? Client identified current positives as using journaling and positive self-talk to regulate her emotions. Client reported she is somewhat anxious about returning to her house at school due to ongoing roommate conflicts. However, client stated she feels more confident in her ability to set and maintain boundaries which will be a supportive factor. Client appeared to benefit from reflecting on progress and connecting with peers. Progress noted as shown by client?s report of increased mood stability, but she can continue to challenge self-depreciating talk.
--- NOTE | 2018-05-15 10:00 | BH.SGPN.GN ---
Behaviors/Verbalizations/Mental Status: [] Pt eye contact good, casually dressed, motor activity appropriate, speech normal rate and tone, mood euthymic, congruent affect, thoughts linear and intact, no evidence of delusions or hallucinations. Client Response/Progress/Benefit: []Pt listened attentively to others and contributed to discussion at times. Pt reported goal setting is difficult, especially long-term goal setting because sometimes she doesn't really know what she wants for her life. Pt recognized although setting goals is difficult, she knows having goals provide many benefits and are important. Pt reported when it comes to goal setting she struggles most with not making her goals specific enough. Pt reported her goals tend to be broad which results in pt losing sight of what she wants to accomplish. Pt seemed to benefit from rehearsing setting short term goals and learning about SMART goal setting. Narrative Note: []
--- NOTE | 2018-05-15 11:10 | BH.SGPN.GN ---
Behaviors/Verbalizations/Mental Status: [] Pt eye contact good, casually dressed, motor activity appropriate, speech normal rate and tone, mood euthymic, congruent affect, thoughts linear and intact, no evidence of delusions or hallucinations. Client Response/Progress/Benefit: [] Client contributed positively discussion listened attentively to others. Client reported her goal for the next 2 weeks is to do yoga for at least 30-45 minutes 4-5 times a week. Client reported the benefit to accomplish and his goal will be feeling better emotionally and physically, having decreased pain and improved sleep. Client shared one obstacle that could not get in the way of accomplishing her goal is not feeling like doing yoga. Client shared one way she could overcome identified obstacle is to remind her of why she wants to accomplish goal and have a support person do yoga with her. Client shared other barriers to accomplishing her goal could be not having enough time and forgetting. Client reported she can overcome the identified obstacles by setting a reminder on her phone and putting yoga into her weekly schedule. Client seemed to benefit from identifying a short-term goal that will help her improve her mental and physical health. Client to continue [facility] level of care to maintain gains, increase use of healthy coping skills, and prevent decompensation. Narrative Note: []
--- NOTE | 2018-05-15 13:51 | BH.MDN ---
Multi-Disciplinary Note - Note 30-min Individual Time Started:: 12:03 Date: 05/15/18 Purpose of session/treatment goals addressed:: Purpose of session was to assess pt's current symptoms and stressors. Other topics included: processing current stressor, reviewing treatment progress, and tentative discharge. Eye Contact:: Good Motor Activity:: Appropriate Appearance:: Casual Speech:: Appropriate Mood:: Euthymic, Anxious Affect:: Congruent Thoughts:: Linear, Logical, No evidence of hallucinations/delusions noted Staff Interventions:: Therapist used open ended questions to elicit pt's current symptoms and stressors. Therapist processed recent stressor with pt, validated pt's emotions. Therapist elicited pt's thoughts about treatment progress since started [facility] level of care. Therapist discussed tentative discharge date with pt. Homework provided for pt to contact and schedule outpatient counseling appointment and appointment with PCP for medication management. Client Response:: Pt reported overall things have been going well for her. Pt shared currently she is feeling stressed about a situation with her best friend. Pt reported she has had recent thoughts of wanting to take her friendship with her best friend to a more intimate level. Pt expressed confusion because she identifies as a lesbian, but has strong feelings for this male friend and is unsure of what to do. Pt expressed her thoughts, concerns, and confusions about the situation. Pt reported she thinks she will communicate her thoughts to this best friend because she is confident he will be understanding and open to the discussion. Pt reported in regards to treatment progress she can note significant progress in herself since starting [facility]. Pt reported her depression and anxiety has decreased with improved healthy skills to manage symptoms. Pt shared she has increased self-awareness of her negative and distorted thought patterns with improved ability to challenge unhealthy thoughts. Pt agreed next week to be her last week in [facility]. Pt agreeable to contact her outpatient counselor and PCP to schedule appointments for aftercare. Risks/Concerns:: Pt denies suicidal ideation, plan or intention to date. Progress Toward Goals/Plan:: Pt has made progress on treatment goals AEB pt identifying decrease in both depression and anxious symptoms. Pt utilizing healthy coping skills more consistently. Pt able to challenge and reframe distorted thought patterns. Showing improved emotional regulation and not allowing small stressors to impact her mood as intensely. Plan is for pt to schedule appointments for counseling and medication management for post dishcarge from [facility] next week. Time Stopped:: 12:30
--- NOTE | 2018-05-22 09:38 | BH.MDN_ITS ---
Multi-Disciplinary Note - Note 30-min Individual Time Started:: 12:03 Date: 05/15/18 Purpose of session/treatment goals addressed:: Purpose of session was to assess pt's current symptoms and stressors. Other topics included: processing current stressor, reviewing treatment progress, and tentative discharge. Eye Contact:: Good Motor Activity:: Appropriate Appearance:: Casual Speech:: Appropriate Mood:: Euthymic, Anxious Affect:: Congruent Thoughts:: Linear, Logical, No evidence of hallucinations/delusions noted Staff Interventions:: Therapist used open ended questions to elicit pt's current symptoms and stressors. Therapist processed recent stressor with pt, validated pt's emotions. Therapist elicited pt's thoughts about treatment progress since started [facility] level of care. Therapist discussed tentative discharge date with pt. Homework provided for pt to contact and schedule outpatient counseling appointment and appointment with PCP for medication management. Client Response:: Pt reported overall things have been going well for her. Pt shared currently she is feeling stressed about a situation with her best friend. Pt reported she has had recent thoughts of wanting to take her friendship with her best friend to a more intimate level. Pt expressed confusion because she identifies as a lesbian, but has strong feelings for this male friend and is unsure of what to do. Pt expressed her thoughts, concerns, and confusions about the situation. Pt reported she thinks she will communicate her thoughts to this best friend because she is confident he will be understanding and open to the discussion. Pt reported in regards to treatment progress she can note significant progress in herself since starting [facility]. Pt reported her depression and anxiety has decreased with improved healthy skills to manage symptoms. Pt s hared she has increased self-awareness of her negative and distorted thought patterns with improved ability to challenge unhealthy thoughts. Pt agreed next week to be her last week in [facility]. Pt agreeable to contact her outpatient counselor and PCP to schedule appointments for aftercare. Risks/Concerns:: Pt denies suicidal ideation, plan or intention to date. Progress Toward Goals/Plan:: Pt has made progress on treatment goals AEB pt identifying decrease in both depression and anxious symptoms. Pt utilizing healthy coping skills more consistently. Pt able to challenge and reframe distorted thought patterns. Showing improved emotional regulation and not allowing small stressors to impact her mood as intensely. Plan is for pt to schedule appointments for counseling and medication management for post dishcarge from [facility] next week. Time Stopped:: 12:30
--- NOTE | 2018-05-22 09:38 | BH.MDN ---
Multi-Disciplinary Note - Note 30-min Individual Time Started:: 09:05 Date: 05/22/18 Purpose of session/treatment goals addressed:: Purpose of session was to assess pt's current symptoms and stressors. Other topics included: identifying treatment progress, strategies for success, and solidfying aftercare. Eye Contact:: Good Motor Activity:: Appropriate Appearance:: Casual Speech:: Appropriate Mood:: Euthymic Affect:: Congruent Thoughts:: Linear, Logical, No evidence of hallucinations/delusions noted Staff Interventions:: Therapist utilized open ended questions to elicit pt's current symptoms and stressors. Therapist processed recent holiday's and interpersonal relationship concerns/stressor. Therapist elicited pt's thought about treatment progress since started [facility]. Therapist collaborated with pt to identify strategies to maintain success. Therapist solidfied aftercare for continued care post discharge from [facility]. Client Response:: Pt reported her holiday went really well because she made the decision to go to her adoptive parents home for [place] in the morning then went to her best friends house of the evening. Pt shared [place] with her family was a lot more enjoyable and fun then she had expected. Pt recognized often times anxious thinking is the worst case scenario, which doesn't often occur. Pt shared in regards to her confusion with her sexuality and pursuing relationship with her best kathy friend she is happy she has chosen to explore different options and not keep herself stuck on the labels of what am I. Pt reported that interpersonal issue is no longer a concern and all is working out well. Pt reported since she started [facility] she has noted progress with being able to handle her anxiety and depression much better compared to before. Pt reported she recognizes her unhelpful and distorted thoughts with improved ability to challenge thoughts. Pt reported she makes more independent decisions versus asking someone else to make tough decisions for her. Pt reported in order to maintain progress she tiffanie refer back to the [facility] binder to review skills and strategies she has learned. Pt reported she will continue to utilize her healthy coping strateiges. Pt stated it will be important for her to recognize her distorted thoughts and continue to reframe or challenge. Pt shared it's also important for her to focus on self-care. Pt reported after discharge from [facility] she will follow up with her outpatient counselor from [facility] and her PCP for medication management. Risks/Concerns:: Pt denies suicidal ideation, plan or intention to date. Progress Toward Goals/Plan:: Pt has made significant progress since starting [facility] with decreased depression and anxiety. Pt has shown increased self-confidence, improved emotional regulation, and overall functioning at baseline. Pt is to discharge from [facility] level of care tomorrow and will follow up with her already established counselor and PCP for continued care. Time Stopped:: 09:35
--- NOTE | 2018-05-22 09:48 | BH.MDN_ITS ---
Multi-Disciplinary Note - Note 30-min Individual Time Started:: 09:05 Date: 05/22/18 Purpose of session/treatment goals addressed:: Purpose of session was to assess pt's current symptoms and stressors. Other topics included: identifying treatment progress, strategies for success, and solidfying aftercare. Eye Contact:: Good Motor Activity:: Appropriate Appearance:: Casual Speech:: Appropriate Mood:: Euthymic Affect:: Congruent Thoughts:: Linear, Logical, No evidence of hallucinations/delusions noted Staff Interventions:: Therapist utilized open ended questions to elicit pt's current symptoms and stressors. Therapist processed recent holiday's and interpersonal relationship concerns/stressor. Therapist elicited pt's thought about treatment progress since started [facility]. Therapist collaborated with pt to identify strategies to maintain success. Therapist solidfied aftercare for continued care post discharge from [facility]. Client Response:: Pt reported her holiday went really well because she made the decision to go to her adoptive parents home for [place] in the morning then went to her best friends house of the evening. Pt shared [place] with her family was a lot more enjoyable and fun then she had expected. Pt recognized often times anxious thinking is the worst case scenario, which doesn't often occur. Pt shared in regards to her confusion with her sexuality and pursuing relationship with her best kathy friend she is happy she has chosen to explore different options and not keep herself stuck on the labels of what am I. Pt reported that interpersonal issue is no longer a concern and all is working out well. Pt reported since she started [facility] she has noted progress with being able to handle her anxiety and depression much better compared to before. Pt reported she recognizes her unhelpful and distorted thoughts with improved ability to challenge thoughts. Pt reported she makes more independent decisions versus asking someone else to make tough decisions for her. Pt reported in order to maintain progress she tiffanie refer back to the [facility] binder to review skills and strategies she has learned. Pt reported she will continue to utilize her healthy coping strateiges. Pt stated it will be important for her to recognize her distorted thoughts and continue to reframe or challenge. Pt shared it's also important for her to focus on self-care. Pt reported after discharge from [facility] she will follow up with her outpatient counselor from [facility] and her PCP for medication management. Risks/Concerns:: Pt denies suicidal ideation, plan or intention to date. Progress Toward Goals/Plan:: Pt has made significant progress since starting [facility] with decreased depression and anxiety. Pt has shown increased self-confidence, improved emotional regulation, and overall functioning at baseline. Pt is to discharge from [facility] level of care tomorrow and will follow up with her already established counselor and PCP for continued care. Time Stopped:: 09:35
--- NOTE | 2018-05-22 10:15 | BH.SGPN.GN ---
Behaviors/Verbalizations/Mental Status: []Client alert and oriented, casual dress, hygiene good. Eye contact fair. Motor activity appropriate. Speech off topic at times, otherwise within normal limits. Affect congruent, mood euthymic. Thoughts linear, logical, no signs of hallucinations or delusions. Client Response/Progress/Benefit: []Client responded well to session, quiet but engaged as shown by body language. Client agreed with peers that having a support system is needed for mental health progress and it is up to each person to communicate needs and build supports. Client acknowledged that it is beneficial to have a balance of internal and external supports that can provide different type of support rather than relying on one person. Client nodded at the benefits of reaching out and building social support such as: validation, different perspective, and connection. Client reported barriers such as guilt, shame, and cognitive distortions can keep people from reaching out to support and building support networks. Client appeared to benefit from gaining insight of the benefits and barriers of increasing social support. Progress noted as shown by client?s improved mood. Client to discharge from [facility] tomorrow, but she can benefit from one more group day to reinforce healthy coping skills.
--- NOTE | 2018-05-22 11:20 | BH.SGPN.GN ---
Behaviors/Verbalizations/Mental Status: [] Pt eye contact good, casually dressed, motor activity appropriate, speech normal rate and tone, mood euthymic, congruent affect, thoughts linear and intact, no evidence of delusions or hallucinations. Client Response/Progress/Benefit: []Pt listened attentively to peers and contributed thoughts and ideas to discussion. Pt contributed to discussion about the different types of support and benefits different types of support can provide. Pt reported the type of support she needs is having a friend/support person be physically in the same room when pt is struggling. Pt shared the support person doesn't have to talk about what pt is feeling, just needs to be there which helps pt calm down and feel comfortable. Pt identified steps can take to start receiving this type of support is to communicate to friends/healthy supports her needs and ask for this type of support when needs it. Pt seemed to benefit from identifying what kind of support is most beneficial when in need. Pt to continue IOP to maintain gains and prevent decompensation. Narrative Note: []
--- NOTE | 2018-05-23 09:00 | BH.SGPN.GN ---
Behaviors/Verbalizations/Mental Status: [] Eye contact is good. Motor activity is appropriate. Appearance is casual. Speech is Appropriate. Mood is euthymic. Affect is full. Thoughts are linear and logical. No evidence of psychosis. Reviewed daily check in sheet and no reports of suicidal ideations or intent. Client Response/Progress/Benefit: [] Pt was an active participant in group discussion. Emotion for today is positive. 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 Reports I'm currently in a good space. Shared with the group that this would be her last day in the program. Discussed the progress that she feels that she has made as she looks back to how she was prior to entering the program. Benefited from group support and encouragement. Progress noted per pt. Today will be discharged from [facility]. Narrative Note: []
--- NOTE | 2018-05-23 10:05 | BH.SGPN.GN ---
Behaviors/Verbalizations/Mental Status: []Client alert and oriented, neatly dressed and groomed. Eye contact fair. Motor activity appropriate. Speech within normal limits. Affect congruent to mood, mood euthymic. Thoughts linear, logical, no signs of hallucinations or delusions. Client Response/Progress/Benefit: []Client responded somewhat well to session, quiet during discussion, but high engagement in activity. Client declined to participate in the discussion of how positive and negative forces in a person?s life can impact one?s mental health and functioning. Client engaged in the activity and was active through providing ideas and encouragement to peers. Client appeared to benefit from connecting with peers in the activity and gaining insight to how the positive and negative forces in a person?s life impact mental health. Client to discharge from [facility] today as she reports improved mood and has accomplished her treatment goals.
--- NOTE | 2018-05-23 11:15 | BH.SGPN.GN ---
Behaviors/Verbalizations/Mental Status: [] Pt eye contact good, casually dressed, motor activity appropriate, speech normal rate and tone, mood euthymic, congruent affect, thoughts linear and intact, no evidence of delusions or hallucinations. Client Response/Progress/Benefit: []Pt listened attentively to others, engaged during small group discussion, and shared thoughts and feelings. Pt reported personal positive forces to include: motivation, positive supports, wanting to make a life for herself, school, and communication. Pt shared personal negative forces to include: anxiety, cognitive distortions, depression, and bad habits. Pt identified she will focus on decreasing the impact cognitive distortions has on her by challenging distorted thoughts at least twice a day. Pt seemed to benefit from increased awareness of her positive and negative forces as well as identifying a strategy to help decrease impact of negative forces. Pt has made significant progress since starting [facility] and will be discharging from program today. Narrative Note: []
--- NOTE | 2018-05-23 12:28 | BH.AFTERPLAN ---
Aftercare Plan - Demographics Treatment End Date:: 05/23/18 Psychiatrist:: Brett Bess Psychiatrist Office #:: [phone] [facility]/IOP Therapist:: Chrisitne Orona Therapist Phone #:: [phone] - Medications Home Medications: Home Medications Aripiprazole [Abilify] 2 mg PO DAILY 05/02/18 Fluoxetine [Prozac] 40 mg PO DAILY 05/02/18 - Plan Details Progress/Aftercare Plan Details:: You have made signficiant progress since starting IOP! Pt has
--- NOTE | 2018-05-23 16:02 | BH.DS ---
Discharge Summary - Demographics Date of Admission:: 04/24/18 Discharge Date: 05/23/18 Presenting Problems at Admission:: Pt referred to behavioral health program by public administration professor due to worsening depression and struggling to keep up with school work. Pt experienced two recent breakups which exasperated pt's depressive symptoms. At admission pt endorsed depressed mood with anhedonia, decreased energy, decreased motivation, hopelessness, erratic appetite, and passive thoughts of . Pt also endorsed ruminative anxiety about multiple issues, isolative behaviors, and skin picking when anxious. Discharge Diagnoses:: F33.1 Major Depressive Disorder, Recurrent, Moderate Reason for Discharge:: Pt has made significant progress on her treatment goals and no longer meets criteria for [facility] level of care. - Treatment Progress During Treatment & Response: Pt has demonstrated a reduction in both her depressive and anxious symptoms as evidenced by pt's self-report scores on the DSM 5 cross cutting measure. At intake pt scored on the depressive subscale a 6/8, with 8 being severe, and at discharged scored a 2/8, which demonstrates decrease in depressive symptoms. At intake on the anxious subscale pt scored a 6/12, with 12 being severe, and at discharge pt scored a 0/12 which demonstrates reduction in anxious symptoms. Per pt's report pt feeling more stable and improved daily functioning. Pt showed improvement with being able to focus on what is in her control. Pt also progressed with managing interpersonal conflicts by being more assertive and regulating her emotions. Pt has improved awareness of her negative thought patterns with improved ability to challenge and reframe. Pt also utilizing healthy coping skills on a more consistent basis to manage anxious and depressive symptoms. Pt responded well to treatment AEB pt often sharing thoughts and feelings during discussions. Pt often contributed her thoughts to discussions. Pt somewhat inconsistent with completing assigned homework from individual and group counseling sessions. Issues Still to be Addressed:: Pt could benefit from reinforcement of skills learned and continuing to build healthy skills to manage mental health symptoms. Pt also could benefit from learning strategies and skills to improve interpersonal relationships. Discharge Recommendations/Instructions:: Pt encouraged to follow up with outpatient providers. Pt scheduled to see outpatient counselor on June 05 and her medication prescriber on June 10. Discharge Handout: Complete Discharge Handout with client on aftercare options and continuity of care.
--- NOTE | 2018-06-11 15:04 | BH.NOTE ---
: Inpatient Note - Notes Behavioral Health Inpatient Note: Per staff request, client is in need of medication refills. She does have an appointment with her PCP (Dr. Haley Boo, park interpretive specialist) next week, but has not seen a psychiatrist. This client saw Dr. Bess while in the program; however, Dr. Bess is no long working in this facility, so this RN is unable to refill the medications. Spoke with Dr. Boo's nurse, Yareli, who states that pediatricians will not refill and monitor aripiprazole for patients. It is recommended that patient transfer care to a family practice. This RN called the [facility], where the client is a student, to see if the staff there is able to assist. Per Tashia, Dr. Saucedo is willing to refill the client's medications if the client/student is willing to schedule an appointment with Dr. Saucedo for follow-up. staff contacted client who is agreeable to follow-up with Dr. Saucedo and gives consent for her necessary records be sent to the [facility]. Client is instructed to call back to if additional services or needs arise. Treatment Plan, Initial Psychiatric Consultation, and medication reconciliation faxed to [phone]. FERN BryanN, RN
--- OUTSIDE RECORDS SUMMARY | 2018-06-21 15:08 | XMS RPT_ITS ---
:1995 Author Organization OHIP Care Team Providers Name Role Phone HALEY LINK Attending Unavailable CAROLYN LANDRUM (GOSPEL WORKER) Attending Unavailable ALEXA MOCK (CNM) Attending Unavailable HALEY LINK Attending Unavailable HALEY LINK Referring Unavailable SUNIL YANEZ Attending Unavailable Haley Link Primary Care Unavailable CIANCONESUNIL Attending Unavailable Haley Link Primary Care Unavailable PROBLEMS PROBLEMS DATE TYPE CONDITION / CODE ATTENDING STATUS SOURCE 12/20/2017 Active Vitamin D NA Active [facility] deficiency, [facility] [place] [facility] unspecified / Repository E55.9(ICD-10) 08/01/2017 Active Unknown / CAROLYN LANDRUM Active [facility] UNK(Unknown) (GOSPEL WORKER) Main [place] [facility] Repository PROCEDURES PROCEDURES No Procedure Records FoundRESULTS RESULTS PROGRESS Observed: 03/14/2018 Status: COMPLETED Source: [facility] 10:56 AM [facility] REPOSITORY HNO ID: [id number] Author: Logan Hand LPN Service: (none) Author Type: (none) Type: Progress Notes Filed: 03/14/2018 10:57 AM Note Text: 22 year old female here for INACTIVATED INFLUENZA VACCINE. 8088-8510 Season Patient is identified by name and date of : Yes [] CONTRAINDICATIONS color enhanced section Age less than 6 months? No Allergy to eggs, chicken, chicken feathers, or chicken dander? No Allergy to thimerosal (a preservative) or formaldehyde, gelatin? No History of severe reaction to any vaccine component or a previous dose of influenza vaccination? 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 Yes See immunization activity in [facility] for details of immunizations adminstered today. Patient age: [age] year old For The 4930-5193 Flu Season 6-35 months old: Fluzone 0.25 [...] 03/14/2018 Status: COMPLETED Source: [place] 10:40 AM [facility] REPOSITORY Nurse Visit (FAMPWS) GARRETT KAYITTIM Diaz ([id number]) 1995 F Date Time Provider Department 03/14/18 10:40 AM [place] NURSE MONALISA During your visit today, we recorded the following information about you: Temperature 97.6 degrees Logan Hand CARLOS 03/14/2018 10:57 AM Signed 22 year old female here for INACTIVATED INFLUENZA VACCINE. 9989-2763 Season Patient is identified by name and date of : Yes [] CONTRAINDICATIONS color enhanced section Age less than 6 months? No Allergy to eggs, chicken, chicken feathers, or chicken dander? No Allergy to thimerosal (a preservative) or formaldehyde, gelatin? No History of severe reaction to any vaccine component or a previous dose of influenza vaccination? 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 Yes See immunization activity in [facility] for details of immunizations adminstered today. Patient age: [age] year old For The 9977-2649 Flu Season 6-35 months old: Fluzone 0.25 [...] QUADRIVALENT AGE 3 YRS PLUS + IM [[id number]] Order #: [id number] Prescriptions as of 03/14/2018 Sig: FLUOXETINE 40 MG CAPSULE Take 1 capsule by mouth once * CHOLECALCIFEROL (VITAMIN D3) * Take 1 capsule by mouth twice* Problem List As Of Date 03/14/2018 Noted Resolved Compulsive skin picking [L98.1] INVALID FOR* Vitamin D deficiency [E55.9] INVALID FOR* Encounter Status:Closed by LOGAN HAND LPN on 03/14/18 CBC AND DIFFERENTIAL Collected: 12/20/2017 Status: F Source: [place] 10:47 AM [facility] REPOSITORY TYPE [...] k/uL Abs Lymph 2.47 LAB AMONO % Bladen% 11.1 LAB AAMONO <0.87 k/uL Abs Bladen 0.67 LAB AEOS % Eosin% 0.0 LAB AAEOS <0.46 k/uL Abs Eosin <0.03 LAB ABASO % Baso% 0.3 LAB AABASO <0.11 k/uL Abs Baso <0.03 LAB AUNRBC 0 /100 WBC NRBCs 0.0 LAB ABNRBC <0.01 k/uL Absolute nRBC <0.01 LAB DTYP DTYPE Auto Diff Performed By: #### CBCDIF, VITD #### [facility] [place] [address] [place] [address] VITAMIN D 25 HYDROXY Collected: 12/20/2017 Status: F Source: [place] 10:47 AM [facility] REPOSITORY TYPE CODE TESTS RESULT OUT OF REFERENCE UNITS RANGE LAB VITD 31.0-80.0 ng/mL Vitamin D 25 36.3 Hydroxy Result Comment: Classification of 25 [place] Vitamin D status: Insufficiency/Moderate Deficiency: < or = 30 ng/mL Sufficiency/Optimal Levels: 31 to 80 ng/mL Toxicity: > 100 ng/mL Test performed by chemiluminescent immunoassay. Performed By: #### CBCDIF, VITD #### [facility] [place] [address] [place] [address] PROGRESS Observed: 12/20/2017 Status: COMPLETED Source: [place] 10:01 AM [facility] REPOSITORY HNO ID: [id number] Author: Haley Link Service: (none) Author Type: [...] PROBLEMS Fluoride Water: uses significant amount of [facility] water from: [place] - optimum level (use recommendations for levels of >0.6 ppm), adjusted/purchase (2011 testing) Prescription: age 17+ years - no fluoride supplement indicated Ongoing subspecialty care: Ongoing care: ophthalmology Ongoing ancillary care: NONE School/etc: going into college senior, doing well, grades A. will be doing a [employer] project this year, major [employer] Interests AND Activities: music Significant stresses: Yes, [...] MD CNOV Observed: 12/20/2017 Status: COMPLETED Source: [place] 9:45 AM [facility] REPOSITORY Office Visit (PEDSWS) ONESIMO KAY ([id number]) 1995 F Date Time Provider Department 12/20/17 [...] uses significant amount of city water from: [place] - optimum level (use recommendations for levels of >0.6 ppm), adjusted/purchase (2011) Prescription: age 17+ years - no fluoride supplement indicated Ongoing subspecialty care: Ongoing care: ophthalmology Ongoing ancillary care: NONE School/etc: going into college senior, doing well, grades A. will be doing a [employer] project this year, major [employer] Interests AND Activities: music Significant stresses: Yes, [...] COMMENTS color enhanced section None Kalie Alcantara Mo PHYSICAL EXAM (to re-import BP% use .BPFA) [...] Eat only when hungry. Stock up on vjten-ev-plk vegetables, fruit, cheese, yogurt, milk, lean meats, [...] drinks Go! Be healthy, inside and out! [email or web address] Referring Provider: SELF [200] Allergies As of Date: 12/20/2017 (No Known Allergies) Date Reviewed: 12/20/2017 Reviewed by: Haley Link - Fully Assessed Reason for Visit: Physical [83] Primary Visit Diagnosis:Encounter for general adult medical examination without abnormal findings [Z00.00] Other Visit Diagnosis:Vitamin D deficiency [E55.9] Order(s):CBC + DIFF [SQCBCDIF] Order #: [id number] FUTURE VITAMIN D 25 HYDROXY [SQVITD] Order #: [id number] FUTURE FLUoxetine HCl (PROZAC) 40 mg capsuleTake [...] Eat only when hungry. Stock up on owluj-to-atj vegetables, fruit, cheese, yogurt, milk, lean meats, [...] drinks Go! Be healthy, inside and out! [email or web address] Prescriptions ordered this encounter Disp Refills Start [...] stable housing? 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 who presents for her annual gynecologic exam without complaints. Patient is a student at [employer]. Menses: cycles every 31-32 days and 5 [...] error)@ PAST MEDICAL HISTORY Diagnosis Date - [facility] - [facility] - PAST MEDICAL HISTORY OF 01/02 normal [...] external genitalia normal, normal Bartholin's glands, urethra, [place]'s glands, no vulvar lesions, no cervical lesions, [...] APRN.CNM CNOV Observed: 08/16/2017 Status: COMPLETED Source: [place] 8:45 AM [facility] REPOSIT[facility] Office Visit (WOOB) ONESIMO KAY ([id number]) 1995 F Date Time Provider Department 08/16/17 8:45 AM ASSESSMENT AED TRAINER WSTR WOOB During your visit today, we recorded the following information about you: Blood pressure Weight Height Last Period 102/60 54.4 kg 1.56 m 03/16/18 Alexa Mock, DRYING ROOM OPERATOR.CNM, DRYING ROOM OPERATOR.CNM 08/16/2017 10:00 AM Signed Onesimo Kay is a 21 year old No obstetric history on file. who presents for her annual gynecologic exam without complaints. Patient is a student at [employer]. Menses: cycles every 31-32 days and 5 [...] external genitalia normal, normal Bartholin's glands, urethra, [place]'s glands, no vulvar lesions, no cervical lesions, [...] health screening schedule is recommended by the [employer] (ACOG). Some [...] health screening schedule is recommended by the [employer] (ACOG). Some [...] GC/CHLAMYDIA AMPLIF Collected: 08/01/2017 Status: F Source: [facility] [place] 1:28 PM [facility]INIC [facility]IN CAMPUS REPOSITORY TYPE CODE TESTS RESULT OUT OF REFERENCE UNITS RANGE LAB GCCTSR GC/Chlam Amp Urine Source LAB GCAMPL GC Negative Amplification for Neisseria gonorrhoeae by amplification. LAB CLAMPL Chlamydia Negative Amplif for Chlamydia trachomatis by amplification. Result Comment: For screening asymptomatic women, a vaginal swab specimen (APTIMA vaginal swab [id number]) is optimal. Urine specimens have reduced sensitivity for Chlamydia trachomatis or Neisseria gonorrh oeae infection in female patients without symptoms. This test was developed and its performance characteristics determined by [facility]'s [facility] [place] ([facility]). It has not been cleared or approved by the FDA. [facility] is regulated under CLIA as qualified to perform high-complexity testing. This test is used for clinical purposes. It should not be regarded as inv estigational or for research. Performed By: #### GCCT #### [facility] [address] [place], [place] [address] Observed: 08/01/2017 Status: F Source: [facility] URINE CULTURE 1:27 PM [facility] REPOSIT[facility] Culture Result - No growth (<1,000 CFU/ml) Performed By: #### URCUL #### [facility] [address] [place], [place] [address] PROGRESS Observed: 08/01/2017 Status: COMPLETED Source: [place] 12:07 PM [facility] RE[facility] HNO ID: [id number] Author: Carolyn Goodson (Priyank Landrum Service: (none) [...] off and on : urgency, see HPI FERRY PILOT: Negative for abnormal vaginal bleeding, abnormal vaginal discharge. LMP: 07/09/17; No control, has a female partner; Had Health Communications Specialist appt 08/16/17 All other reviewed and negative [...] Ovulation pain PLAN: As per orders Keep [employer] Specialist appt To ER if severe LLQ pain [...] on Spring break this week. I offered moving worker to talk to her, but she states she will stop and speak to her pediatric nephrologist now--(it is an office close to here) Patient did not seem distraught or in any crisis mode. I shared this info with her PCP. Carolyn Landrum CNP CNOV Observed: 08/01/2017 Status: COMPLETED Source: [place] 11:30 AM [facility] RE[facility] Office Visit (PEDSWS) ONESIMO KAY ([id number]) 1995 F Date Time Provider Department 08/01/17 [...] off and on : urgency, see HPI FERRY PILOT: Negative for abnormal vaginal bleeding, abnormal vaginal discharge. LMP: 07/09/17; No control, has a female partner; Had Health Communications Specialist appt 08/16/17 All other reviewed and negative [...] Ovulation pain PLAN: As per orders Keep [employer] Specialist appt To ER if severe LLQ pain [...] on Spring break this week. I offered moving worker to talk to her, but she states she will stop and speak to her pediatric nephrologist now--(it is an office close to here) [...] Visit Diagnosis:LLQ pain [R10.32] Order(s):UA DIP B/O [[id number]] Order #: [id number] URINE CULTURE [SQURCUL] Order #: [id number] GC/CHLAMYDIA DNA DET [SQGCCAMP] Order #: [id number] Prescriptions as of 08/01/2017 Sig: FLUOXETINE 20 [...] 08/01/17 PROGRESS Observed: 07/11/2017 Status: COMPLETED Source: [place] 11:45 AM [facility] RE[facility]IT[facility] O ID: [id number] Author: Haley Link Service: (none) Author Type: Physician Type: Progress Notes Filed: 07/12/2017 8:23 AM Note Text: SUBJECTIVE: 21-year-old here for follow-up and reinitiation of medication treatment for anxiety. Patient was on Lexapro in the past so was prescribed by [facility] psychiatry. Most recently she was prescribed Zoloft from her [facility] and was taking 25 mg once daily for the past 2-1/2 months. She has also been seeing a counselor regularly at the [facility]. Her medication was not increased during that [...] treatment. Instructed patient to contact office or yttwz-xt-wwrr after-hours promptly should condition worsen or any new symptoms appear Discussed in detail with parents if minor the FDA black box warning regarding the risk of increased suicidal ideation after starting on an SSRI in adolescents and patient agreed she would communicate this with myself or other trusted adult if she felt this was happening. Psychotherapy recommended: Yes-can continue at [facility] recheck 6 weeks Haley Link MD over 25 minutes spent on this appointment. Over 90% were spent face to face with patient and included history and physical examination, coordination of care and counseling. ALLERGIES ALLERGIES DATE TYPE / CODE NAME / CODE REACTION SEVERITY SOURCE 05/02/2018 Drug No Known Unknown [facility] Allergy/416 Allergies/F67516 [facility] 116389(SNOM 3602(RXNORM) Repository ED CT) Drug NO KNOWN [facility] Class/22845 ALLERGIES Main [place] [facility] [facility] 1003(SNOMED Repository CT) ENCOUNTERS ENCOUNTERS ADMIT/DISCHARGE ACCOUNT ADMITTING ENCOUNTER LOCATION SOURCE NUMBER CLASS 04/28/2018 [id number] [facility] 04/24/2018/04/25/[id number] ing:[facility] Repository 03/14/2018/03/17/20 [id number] Ambulatory [address] Repository 12/20/2017/12/21/19 [id number] Ambulatory [address] Repository 12/20/2017/12/24/19 [id number] Ambulatory [address] Repository 08/16/2017/08/20/19 [id number] Ambulatory [address] Repository 08/01/2017/12/21/19 [id number] Ambulatory [address] Repository 07/11/2017/07/11/19 [id number] Ambulatory [address] Repository PAYERS PAYERS ENCOUNTER GUARANTOR PAYER SUBSCRIBER SOURCE 04/28/2018 ONESIMO Diaz Primary ONESIMO [id number] Insurance:CARESOURCEP [facility] Number: [id number], [place] [id number] Repository [address]Iwo: (330) Date:2018-04-24P O [phone] () [address]ATTN: [place] [address]GS: 04/28/2018 Secondary NOT GIVENUNK Eli Insurance:SELF PAY [facility] Number: Effective Repository Date:2018-04-26 04/24/2018 ONESIMO Diaz Primary ONESIMO Joe Eli [id number] Insurance:[facility] Number: [id number], [place] [id number] Repository [address]Ncm: (330) Date:2018-04-24P O [phone] () [address]ATTN: [place] [address]KN: 04/24/2018 Secondary NOT GIVENUNK Eli Insurance:SELF PAY [facility] Number: Effective Repository Date:2018-04-24
--- NOTE | 2018-06-25 11:03 | BH.DS_ITS ---
Discharge Summary - Demographics Date of Admission:: 04/24/18 Discharge Date: 05/23/18 Presenting Problems at Admission:: Pt referred to behavioral health program by clinical laboratory science professor due to worsening depression and struggling to keep up with school work. Pt experienced two recent breakups which exasperated pt's depressive symptoms. At admission pt endorsed depressed mood with anhedonia, decreased energy, decreased motivation, hopelessness, erratic appetite, and pass avni thoughts of . Pt also endorsed ruminative anxiety about multiple issues, isolative behaviors, and skin picking when anxious. Discharge Diagnoses:: F33.1 Major Depressive Disorder, Recurrent, Moderate Reason for Discharge:: Pt has made significant progress on her treatment goals and no longer meets criteria for [facility] level of care. - Treatment Progress During Treatment & Response: Pt has demonstrated a reduction in both her depressive and anxious symptoms as evidenced by pt's self-report scores on the DSM 5 cross cutting measure. At intake pt scored on the depressive subscale a 6/8, with 8 being severe, and at discharged scored a 2/8, which demonstrates decrease in depressive symptoms. At intake on the anxious subscale pt scored a 6/12, with 12 being severe, and at discharge pt scored a 0/12 which demonstrates reduction in anxious symptoms. Per pt's report pt feeling more stable and improved daily functioning. Pt showed improvement with being able to focus on what is in her control. Pt also progressed with managing interpersonal conflicts by being more assertive and regulating her emotions. Pt has improved awareness of her negative thought patterns with improved ability to challenge and reframe. Pt also utilizing healthy coping skills on a more consistent basis to manage anxious and depressive symptoms. Pt responded well to treatment AEB pt often sharing thoughts and feelings during discussions. Pt often contributed her thoughts to discussions. Pt somewhat inconsistent with completing assigned homework from individual and group counseling sessions. Issues Still to be Addressed:: Pt could benefit from reinforcement of skills learned and continuing to build healthy skills to manage mental health symptoms. Pt also could benefit from learning strategies and skills to improve interpersonal relationships. Discharge Recommendations/Instructions:: Pt encouraged to follow up with outpatient providers. Pt scheduled to see outpatient counselor on June 05 and her medication prescriber on June 10. Discharge Handout: Complete Discharge Handout with client on aftercare options and continuity of care.
== END 2018-05-23 12:27 | disposition home or self-care (01) ==
LOC: BHPHP 09:00
PROVIDERS: Family Provider Pediatrics; PCP Pediatrics; Visit Provider Psychiatry & Neurology Psychiatry
DX: F33.2 Major depressive disorder, recurrent severe without psychotic features (principal)
CPT/HCPCS: H0035; H2012; H2020; 90832; 90834; 90837

== ENCOUNTER → 2020-09-02 | Outpatient (CLI) | payer OTHER, MEDICAID, SELFPAY ==
--- NOTE | 2020-09-02 | IMM_PTH ---
PATIENT: ONESIMO GARSIA LOC: [facility] U#:[id number] AGE/SX: 24/F ROOM: RE09/02/[address]: Dr. Nathen Block DDS : 1995 BED: DIS: 09/02/2020 SPEC #: [id number] RECD: 09/05/20 12:56 STATUS: SOUSenthil REQ #: [id number] TARYN: 09/02/20 00:[address]: Nathen Block DEPT: IMMUNOHISTOCHEMISTRY RECD BY: Felicitas Richardson ENTERED: 09/05/20 12:57 SP TYPE: IMMUNO OTHR DR: Dr. Haley Pedraza MD Tissues: CYST Procedures: SMA (add) CD31 (add) CD34 (add) MACRO (add) P53 (add) NEUROFIL (add) Vimentin (initial) NSE (add) S-100 (add) PHYSICIAN & INSTITUTION [place] [id number] SPECIMEN INFORMATION: Tissue Source: Lesion adjacent to impacted lower tooth Clinical Info: Probable odontogenic cyst Specimen Number: [id number] CPT code: 98319, 05017 x8 METHODOLOGY: Deparaffinized sections of prefer/formalin-fixed tissue or PAP/DQ stained slides are incubated with monoclonal/polyclonal antibodies/oligonucleotide probes. Localization is made via biotin free immunoperoxidase method. Appropriate controls are performed and reacted as expected. Results on target cell population are indicated in the following table: RESULTS: ANTIBODY / CLONE RESULT Vimentin (V9) positive CD31 (SARAH/70A) negative CD34 (QBEnd-10) negative Actin (1A4) negative Neurofil (2F11) negative NSE Neuron Specific Enolase negative S-100 (4C4.9) negative P53 (DO-7) negative Macro (HAM-56) negative These tests were developed and their performance characteristics determined by [facility]. They may not have been cleared or approved by the [place]. Food and Drug Administration. The FDA has determined that such clearance or approval is not necessary. The above immunohistochemical/dualISH markers are ordered and reviewed by the Pathologist. INTERPRETATION: Lesion adjacent to impacted lower tooth, biopsy: Consistent with minute fibroma. AM:antione 09/07/2020 Case has been reviewed in consultation with Dr. Hensley who concurs with the above diagnosis. IDC:[email or web address]
--- NOTE | 2020-09-02 | LES_PTH ---
PATIENT: ONESIMO GARSIA LOC: [facility] U#:[id number] AGE/SX: 24/ ROOM: RE09/02/[address]: Dr. Nathen Block DDS : 1995 BED: DIS: 09/02/2020 SPEC #: [id number] RECD: 09/02/20 12:09 STATUS: ROSA ELENA STEVE #: [id number] TARYN: 09/02/20 00:[address]: Nathen Block DEPT: SURGICAL PATHOLOGY RECD BY: Estephanie Cartagena ENTERED: 09/02/20 13:05 SP TYPE: Lesion OTHR DR: Dr. Haley Pedraza MD Tissues: Skin of face, NOS Procedures: Surgery Specimen Level IV HEADER OPERATION: Bony lesion around impacted tooth lower left PRE-OP DIAGNOSIS: Probable odontogenic cyst TISSUE SUBMITTED: Cyst MICROSCOPIC DIAGNOSIS Lesion adjacent to impacted lower tooth, biopsy: Consistent with odontogenic cyst, inflamed. See Comment. AM:antione 09/05/2020 COMMENT Immunohistochemistry ([id number]) supports the diagnosis. Case has been reviewed in consultation with Dr. Hensley who concurs with the above diagnosis. IDC:[email or web address] MICROSCOPIC DESCRIPTION Slides are reviewed. GROSS DESCRIPTION Received is one container labeled with the patient's name and not further designated. The specimen consists of an irregular piece of huggins-pink soft tissue measuring 3 x 1 x 0.1 cm. The specimen is serially sectioned and submitted entirely in one cassette. / KEIKO:antione 09/02/20 TC:3 CPT: 72983
== END | disposition home or self-care (01) ==
LOC: LABSPEC 13:03
PROVIDERS: PCP Pediatrics; Visit Provider Dentist Oral and Maxillofacial Surgery
DX: K01.1 Impacted teeth (principal)
CPT/HCPCS: 88305; 88341; 88342